=== PATIENT | female | born 1990 | race American Indian/Alaskan Native ===

== ENCOUNTER 2016-12-11 13:17 | Emergency (ER) | payer MEDICAID ==
[2016-10-31 22:57] VITALS: BMI 23.9
[2016-12-11 14:17] LABS: RBC URINE 3 /hpf (0-3); URINE BACTERIA RARE (<OCC); URINE BILIRUBIN NEGATIVE (NEGATIVE); URINE BLOOD NEGATIVE (NEGATIVE); URINE COLOR Yellow (YELLOW); URINE GLUCOSE (UA) NORMAL (Normal); URINE KETONE NEGATIVE (NEGATIVE); URINE LEUKOCYTE ESTERASE 3+ Leu/uL (Negative); URINE PROTEIN NEGATIVE (NEGATIVE); URINE UROBILINOGEN NORMAL mg/dL (0.2-1.0); WBC URINE 35 /hpf (0-5)
[2016-12-11] MEDS ORDERED: Lactated Ringer's 1,000 ML IV SCH (14:45)
[2016-12-11 14:57] LABS: HEMATOCRIT 34.9 % (34.0-47.0); MEAN CORPUSCULAR HEMOGLOBIN 32.9 pg (27.0-31.0); MEAN CORPUSCULAR HGB CONC 36.1 g/dL (33.0-37.0); MEAN PLATELET VOLUME 8.7 fL (7.2-11.7); RED CELL DISTRIBUTION WIDTH 14.3 % (11.5-14.5); WHITE BLOOD COUNT 7.8 K/uL (4.8-10.8)
--- NOTE | 2016-12-11 14:59 | OBHP ---
Datetime: 12/11/2016 14:53 IP Adm Impression: , intrauterine Admit Comment, IP Provider: at 23weeks came as she slipped in the bathroom at 1.30. pt states s he was feeling dizzy.pt vomited x 4. obhx primi pmh denies med pnv all nkda psh de soch den ve closed a/p a 23weeks s/p fall no trauma in the belly npo/ivf cbc/cmp/ptt/pt/ua cont sarah and efm ont close observation Pelvic Type - PN: Adequate Extremities - PN: Normal Abdomen - PN: Normal Back - PN: Normal Breast - PN: Normal Lungs - PN: Normal Heart - PN: Normal Thyroid - PN: Normal Neurologic - PN: Normal HEENT - PN: Normal General - PN: Normal Contraction Comments Provider: [id number] Comments, ACOG Physical Exam: gravid,non tender ext no edema,no calf ten no bruise EGA AdmitDate IP: 23.1 Vital Signs Provider: Reviewed; Within Normal Limits IP Chief Complaint: Trauma/Fall NICHD Variability Prov Fetus A: Moderate 6-25bpm Dilatation, Provider: 0 Effacement, Provider: 0 Station, Provider: -3 Genitourinary Exam: Normal DTRs - PN: Normal
[2016-12-11 15:07] LABS: CHLORIDE 97 mmol/L (98-107); POTASSIUM 3.1 mmol/L (3.6-5.2); SODIUM 133 mmol/L (132-148)
[2016-12-11 15:09] LABS: BILIRUBIN,TOTAL 0.4 mg/dL (0.2-1.3); GFR AFRICAN-AMERICAN > 60
[2016-12-11 15:10] LABS: ALB/GLOB RATIO 1.1 (1.0-2.1); ALKALINE PHOSPHATASE 95 U/L (38-126); ALT/SGPT 48 U/L (9-52); AST/SGOT 47 U/L (14-36); BLOOD UREA NITROGEN 4 mg/dL (7-17); CARBON DIOXIDE 24 mmol/L (22-30); GLUCOSE,RANDOM 75 mg/dL (65-105); TOTAL PROTEIN 6.7 g/dL (6.3-8.3)
[2016-12-11 15:11] LABS: CALCIUM 8.3 mg/dl (8.6-10.4)
--- NOTE | 2016-12-11 16:59 | OBHP ---
Datetime: 12/11/2016 16:54 Admit Comment, IP Provider: pt feels ok. tolerated food blood work all normal except k 3.1 and ast high ua 3+ kdur 20 meq po given plan macrobid 100 mg bid x 7days zofran 4 mg, prn po hyration f/u in clinic on monday FHR - Baseline A Provider: 130 Contraction Comments Provider: none Vital Signs Provider: Reviewed; Within Normal Limits NICHD Variability Prov Fetus A: Moderate 6-25bpm Datetime: 12/11/2016 14:53 EGA AdmitDate IP: 23.1
--- NOTE | 2016-12-11 16:59 | OBDCSUM ---
Datetime: 12/11/2016 16:58 Discharged to, Provider: Home Follow up at, Provider: monday Disch Instr Diet: Regular Follow up in weeks, Provider: clinic Discharge Comment, Provider: macrobid 100 mg bid x 7days zofran 4 mg, prn po hyration f/u in clinic on monday Discharge Diagnosis Prov Other: 23week s/p fall uti vomiting
[2016-12-11] MEDS ORDERED: Potassium Chloride 20 mEq ER Tab PO SCH (17:00)
== END 2016-12-11 16:58 | disposition home or self-care (01) ==
LOC: C.EROB 13:17
DX: O23.42 Unspecified infection of urinary tract in pregnancy, second trimester (principal); Z3A.23 23 weeks gestation of pregnancy
CPT/HCPCS: 80053; 81001; 85027; 85384; 85610; 85730; 99283; J7120

== ENCOUNTER 2017-01-07 14:18 | Inpatient (IN) | payer MEDICAID ==
--- NOTE | 2017-01-07 15:42 | OBHP ---
Datetime: 01/07/2017 15:21 IP Adm Impression: , intrauterine IP Chief Complaint Other: 26 year old at 27 weeks Gestation complains of dysuria, urinary f requency for 1 day. Denies nausea, vomiting. Complains of fever for 1 day. PMH: None PSH: None Allergy: None IP Admit Plan: Observation/Evaluation Admit Comment, IP Provider: Acute UTI. IV Hydration, IV Antibiotics. Pelvic Type - PN: Adequate Extremities - PN: Normal Abdomen - PN: Normal Back - PN: Abnormal Breast - PN: Not Done Lungs - PN: Normal Heart - PN: Normal Thyroid - PN: Not Done Neurologic - PN: Not Done HEENT - PN: Not Done General - PN: Normal FHR - Baseline A Provider: 120 Gestation - Est Wks by US: 27.0 EGA AdmitDate IP: 27.0 Vital Signs Provider: Reviewed Vital Signs Provider Details: Temp 101.4 IP Chief Complaint: Signs/symptoms UTI NICHD Variability Prov Fetus A: Marked >25bpm NICHD Decel Fetus A IP Provider: None Genitourinary Exam: Normal DTRs - PN: Normal
[2017-01-07 15:51] VITALS: BMI 24.7
[2017-01-07 17:03] LABS: BASO % 0.2 % (0.0-2.0); EOS % 0.1 % (0.0-4.0); HEMATOCRIT 40.1 % (34.0-47.0); LYMPH # 1.3 K/uL (1.0-4.3); MEAN CELL VOLUME 91.9 fL (81.0-99.0); MEAN CORPUSCULAR HEMOGLOBIN 31.7 pg (27.0-31.0); MEAN CORPUSCULAR HGB CONC 34.4 g/dL (33.0-37.0); MEAN PLATELET VOLUME 9.9 fL (7.2-11.7); MONO # 1.4 K/uL (0.0-0.8); MONO % 7.5 % (0.0-10.0); NRBC % 0.2 % (0.0-2.0); PLATELET COUNT 314 K/uL (130-400); RED CELL DISTRIBUTION WIDTH 14.6 % (11.5-14.5); WHITE BLOOD COUNT 18.1 K/uL (4.8-10.8)
[2017-01-07 17:09] LABS: CHLORIDE 96 mmol/L (98-107); POTASSIUM 3.3 mmol/L (3.6-5.2); SODIUM 134 mmol/L (132-148)
[2017-01-07 17:11] LABS: ALB/GLOB RATIO 1.1 (1.0-2.1); AST/SGOT 48 U/L (14-36); BILIRUBIN,TOTAL 0.9 mg/dL (0.2-1.3); CARBON DIOXIDE 22 mmol/L (22-30); GFR AFRICAN-AMERICAN > 60; TOTAL PROTEIN 7.6 g/dL (6.3-8.3)
[2017-01-07 17:12] LABS: ALKALINE PHOSPHATASE 145 U/L (38-126); ALT/SGPT 22 U/L (9-52); BLOOD UREA NITROGEN 4 mg/dL (7-17); CALCIUM 8.7 mg/dl (8.6-10.4); GLUCOSE,RANDOM 54 mg/dL (65-105)
[2017-01-07 17:13] LABS: RBC URINE 2 /hpf (0-3); URINE BILIRUBIN NEGATIVE (NEGATIVE); URINE BLOOD NEGATIVE (NEGATIVE); URINE COLOR Yellow (YELLOW); URINE GLUCOSE (UA) NORMAL (Normal); URINE KETONE 2+ mg/dL (NEGATIVE); URINE LEUKOCYTE ESTERASE 3+ Leu/uL (Negative); URINE PROTEIN NEGATIVE (NEGATIVE); URINE UROBILINOGEN NORMAL mg/dL (0.2-1.0); WBC URINE 32 /hpf (0-5)
[2017-01-07 17:31] LABS: NEUTROPHIL 86 % (50-75); TOTAL CELLS COUNTED 100
[2017-01-07] MEDS: Lactated Ringer's 1,000 ML IV SCH (22:45)
[2017-01-08] MEDS: cefTRIAXone IV 1 gm in Dextros 50 ML IVPB SCH ×3 (04:00→16:38)
[2017-01-08 07:44] LABS: BASO # 0.1 K/uL (0.0-0.2); BASO % 0.4 % (0.0-2.0); EOS % 0.2 % (0.0-4.0); HEMATOCRIT 33.6 % (34.0-47.0); MEAN CELL VOLUME 90.9 fL (81.0-99.0); MEAN CORPUSCULAR HEMOGLOBIN 32.6 pg (27.0-31.0); MEAN CORPUSCULAR HGB CONC 35.9 g/dL (33.0-37.0); MEAN PLATELET VOLUME 9.1 fL (7.2-11.7); MONO # 1.6 K/uL (0.0-0.8); MONO % 11.4 % (0.0-10.0); NRBC % 0.1 % (0.0-2.0); RED CELL DISTRIBUTION WIDTH 14.5 % (11.5-14.5)
[2017-01-08] MEDS: Lactated Ringer's 1,000 ML IV SCH ×2 (08:59→17:47)
[2017-01-08] MEDS ORDERED: Prenatal Multivit/Folic Acid/Iron Tab PO SCH (10:00)
--- NOTE | 2017-01-08 10:29 | OBPN ---
Datetime: 01/08/2017 10:21 IP Progress Plan Other: REPLETE POTASSIUM IP Progress Impression Other: STATES VOMITED TWICE LAST NIGHT. BACK PAIN MUCH IMPROVED. IP Progress Plan: Continue present management; Antibiotic therapy FHR - Baseline A Provider: 150 IP Progress Note Comment: WBC DOWN TO 14K,, POTASSIUM 3.0, AFEBRILE. CONTINUE IV ROCEPHIN, REPLETE P OTASSIUM. Vital Signs Provider: Reviewed; Within Normal Limits NICHD Accel Fetus A IP Provider: 10X10 FHR Category Provider Fetus A: Category I NICHD Variability Prov Fetus A: Moderate 6-25bpm NICHD Decel Fetus A IP Provider: None Datetime: 01/07/2017 15:21 Contraction Comments Provider: 0 Gestation - Est Wks by US: 27.0 Vital Signs Provider Details: Temp 101.4 Dilatation, Provider: 0 Effacement, Provider: 0 Station, Provider: high
[2017-01-08 16:25] VITALS: RESP 20
[2017-01-09 02:37] VITALS: BP 104/61; PULSE 95; TEMP 97.8; O2SAT 97
[2017-01-09] MEDS: cefTRIAXone IV 1 gm in Dextros 50 ML IVPB SCH (04:18)
[2017-01-09] MEDS: Lactated Ringer's 1,000 ML IV SCH (04:21)
--- NOTE | 2017-01-09 09:41 | CP.PCM.PN ---
Subjective - Date & Time of Evaluation Date of Evaluation: 01/09/17 Time of Evaluation: 09:38 - Subjective Subjective: PGY-[address] Shipley Pt seen and examined at bedside. Nursing reports no acute events overnight. Pt remained afebrile overnight, with no return of UTI symptoms. She denies frequency, dysuria, difficulty urinating. She denies back pain at this time as well. Pt was anxious to be discharged but was reminded of the importance of going home on the right antibiotic for her infection. Objective - Vital Signs/Intake and Output Vital Signs (last 24 hours): Temp Pulse Resp BP Pulse Ox 97.8 F 95 H 20 104/61 97 01/09/17 02:00 01/09/17 02:00 01/09/17 02:00 01/09/17 02:00 01/09/17 02:00 - Medications Medications: Current Medications Acetaminophen (Tylenol 325mg Tab) 650 mg PO Q6 PRN PRN Reason: Fever >100.4 F Ceftriaxone Sodium (Rocephin Iv 1 Gm Duplex) 50 mls @ 50 mls/30 min IVPB Q12H CRISTOPHER Last Admin: 01/09/17 04:18 Dose: 50 mls/30 min Lactated Ringer's (Lactated Ringer's) 1,000 mls @ 100 mls/hr IV .Q10H CRISTOPHER Last Admin: 01/09/17 04:21 Dose: 100 mls/hr Multivitamins (Hexavitamin) 1 tab PO DAILY CRISTOPHER Last Admin: 01/09/17 09:33 Dose: 1 tab Potassium Chloride (K-Dur 20 Meq Er Tab) 20 meq PO DAILY CRISTOPHER Last Admin: 01/09/17 09:33 Dose: 20 meq - Labs Labs: 01/08/17 07:33 01/08/17 07:33 - Constitutional Appears: Non-toxic, No Acute Distress - Head Exam Head Exam: ATRAUMATIC, NORMOCEPHALIC - Eye Exam Eye Exam: EOMI Pupil Exam: Fixed - ENT Exam ENT Exam: Mucous Membranes Moist - Neck Exam Neck Exam: Full ROM - Respiratory Exam Respiratory Exam: Clear to Ausculation Bilateral, NORMAL BREATHING PATTERN. absent: Rales, Rhonchi, Wheezes - Cardiovascular Exam Cardiovascular Exam: REGULAR RHYTHM, +S1, +S2 - GI/Abdominal Exam GI & Abdominal Exam: Soft, Normal Bowel Sounds. absent: Distended, Guarding, Tenderness (no suprapubic tenderness) Additional comments: Fundal height appropriate for gestational age - Rectal Exam Rectal Exam: Deferred - Extremities Exam Extremities Exam: Normal Inspection. absent: Pedal Edema, Tenderness - Back Exam Back Exam: absent: CVA tenderness (L), CVA tenderness (R) (negative feng's sign ) - Neurological Exam Neurological Exam: Alert, Awake, Oriented x3 - Psychiatric Exam Psychiatric exam: Normal Affect, Normal Mood - Skin Skin Exam: Normal Color, Warm Assessment and Plan - Assessment and Plan (Free Text) Assessment: 26 yo female @ 27 weeks gestational age, who presents to [facility] for UTI symptoms/LBP/with two episodes of emesis. Concern for pyelonephritis. Awaiting urine cx. Plan: UTI r/o pyelonephritis UA (01/07/17): LE 3+, Nitrate negative, WBC 32, Ketones 2+ Awaiting urine culture - if urine culture negative, pt can be discharged Currently on Ceftriaxone 1gm Q12H (started 01/07/17, received 3 doses) f/u CBC Hypokalemia - 3.0 on last labs, repleted w. 40meq PO x 2 LR @ 100cc/hr f/u AM labs and 4pm BMP D/W Dr. Quinten Rivero, PGY-1
[2017-01-09] MEDS ORDERED: Potassium Chloride 20 mEq ER Tab PO SCH ×2 (09:45→10:00)
[2017-01-09] MEDS ORDERED: Multiple Vitamins Tab PO SCH (10:00)
--- NOTE | 2017-01-09 11:44 | CP.PCM.PN ---
Subjective - Date & Time of Evaluation Date of Evaluation: 01/09/17 Time of Evaluation: 12:00 - Subjective Subjective: pt was seen at bed side, feels ctxs, vb, lof,+fm, no dysuriqa,no fever nst 130 mod erik no ctxs u cultre neg Objective - Vital Signs/Intake and Output Vital Signs (last 24 hours): Temp Pulse Resp BP Pulse Ox 97.8 F 95 H 20 104/61 97 01/09/17 02:00 01/09/17 02:00 01/09/17 02:00 01/09/17 02:00 01/09/17 02:00 - Medications Medications: Current Medications Acetaminophen (Tylenol 325mg Tab) 650 mg PO Q6 PRN PRN Reason: Fever >100.4 F Ceftriaxone Sodium (Rocephin Iv 1 Gm Duplex) 50 mls @ 50 mls/30 min IVPB Q12H CRISTOPHER Last Admin: 01/09/17 04:18 Dose: 50 mls/30 min Lactated Ringer's (Lactated Ringer's) 1,000 mls @ 100 mls/hr IV .Q10H CRISTOPHER Last Admin: 01/09/17 04:21 Dose: 100 mls/hr Multivitamins (Hexavitamin) 1 tab PO DAILY CRISTOPHER Last Admin: 01/09/17 09:33 Dose: 1 tab Potassium Chloride (K-Dur 20 Meq Er Tab) 40 meq PO Q4H CRISTOPHER Stop: 01/09/17 13:46 - Labs Labs: 01/08/17 07:33 01/08/17 07:33 - Constitutional Appears: Well Assessment and Plan - Assessment and Plan (Free Text) Assessment: 26 yr with pylonephritis at 27+weeks Plan: plan dc home macrobid 100 mg bid po hyration ptl given f/u in clinic on monday
[2017-01-09 11:52] LABS: BASO % 0.4 % (0.0-2.0); EOS # 0.2 K/uL (0.0-0.7); EOS % 2.1 % (0.0-4.0); HEMATOCRIT 37.7 % (34.0-47.0); LYMPH # 2.1 K/uL (1.0-4.3); LYMPH % 20.4 % (20.0-40.0); MEAN CELL VOLUME 91.1 fL (81.0-99.0); MEAN CORPUSCULAR HEMOGLOBIN 32.2 pg (27.0-31.0); MEAN CORPUSCULAR HGB CONC 35.4 g/dL (33.0-37.0); MONO # 1.1 K/uL (0.0-0.8); MONO % 10.2 % (0.0-10.0); NRBC % 0.2 % (0.0-2.0); WHITE BLOOD COUNT 10.3 K/uL (4.8-10.8)
--- NOTE | 2017-01-09 11:57 | CP.PCM.DIS ---
Provider - Provider Date of Admission: 01/07/17 15:52 Attending physician: Mj Greer MD Primary care physician: Mj Greer MD Time Spent in preparation of Discharge (in minutes): 40 Diagnosis - Discharge Diagnosis (1) UTI (urinary tract infection) during Status: Acute Hospital Course - Lab Results Lab Results: Micro Results 01/07/17 17:30 Urine,Catheterized Urine Culture - Final No Growth (<1,000 CFU/ML) Most Recent Lab Values WBC 14.0 K/uL (4.8-10.8) H 01/08/17 07:33 RBC 3.69 Mil/uL (3.80-5.20) L 01/08/17 07:33 Hgb 12.1 g/dL (11.0-16.0) 01/08/17 07:33 Hct 33.6 % (34.0-47.0) L 01/08/17 07:33 MCV 90.9 fL (81.0-99.0) 01/08/17 07:33 MCH 32.6 pg (27.0-31.0) H 01/08/17 07:33 MCHC 35.9 g/dL (33.0-37.0) 01/08/17 07:33 RDW 14.5 % (11.5-14.5) 01/08/17 07:33 Plt Count 287 K/uL (130-400) 01/08/17 07:33 MPV 9.1 fL (7.2-11.7) 01/08/17 07:33 Neut % (Auto) 74.0 % (50.0-75.0) 01/08/17 07:33 Lymph % (Auto) 14.0 % (20.0-40.0) L 01/08/17 07:33 [place] % (Auto) 11.4 % (0.0-10.0) H 01/08/17 07:33 Eos % (Auto) 0.2 % (0.0-4.0) 01/08/17 07:33 Baso % (Auto) 0.4 % (0.0-2.0) 01/08/17 07:33 Neut # 10.4 K/uL (1.8-7.0) H 01/08/17 07:33 Lymph # 2.0 K/uL (1.0-4.3) 01/08/17 07:33 [place] # 1.6 K/uL (0.0-0.8) H 01/08/17 07:33 Eos # 0.0 K/uL (0.0-0.7) 01/08/17 07:33 Baso # 0.1 K/uL (0.0-0.2) 01/08/17 07:33 Neutrophils % (Manual) 86 % (50-75) H 01/07/17 16:53 Band Neutrophils % 1 % (0-2) 01/07/17 16:53 Lymphocytes % (Manual) 8 % (20-40) L 01/07/17 16:53 Monocytes % (Manual) 5 % (0-10) 01/07/17 16:53 Platelet Estimate Normal (NORMAL) 01/07/17 16:53 Polychromasia Slight 01/07/17 16:53 Anisocytosis (manual) Slight 01/07/17 16:53 Sodium 134 mmol/L (132-148) 01/07/17 16:53 Potassium 3.0 mmol/L (3.6-5.2) L 01/08/17 07:33 Chloride 96 mmol/L (98-107) L 01/07/17 16:53 Carbon Dioxide 22 mmol/L (22-30) 01/07/17 16:53 Anion Gap 19 (10-20) 01/07/17 16:53 BUN 4 mg/dL (7-17) L 01/07/17 16:53 Creatinine 0.5 MG/DL (0.7-1.2) L 01/07/17 16:53 Est GFR ( Amer) > 60 01/07/17 16:53 Est GFR (Non-Af Amer) > 60 01/07/17 16:53 Random Glucose 54 mg/dL (65-105) L 01/07/17 16:53 Calcium 8.7 mg/dl (8.6-10.4) 01/07/17 16:53 Total Bilirubin 0.9 mg/dL (0.2-1.3) 01/07/17 16:53 AST 48 U/L (14-36) H 01/07/17 16:53 ALT 22 U/L (9-52) 01/07/17 16:53 Alkaline Phosphatase 145 U/L (38-126) H D 01/07/17 16:53 Total Protein 7.6 g/dL (6.3-8.3) 01/07/17 16:53 Albumin 3.9 g/dL (3.5-5.0) 01/07/17 16:53 Globulin 3.6 gm/dL (2.2-3.9) 01/07/17 16:53 Albumin/Globulin Ratio 1.1 (1.0-2.1) 01/07/17 16:53 Urine Color Yellow (YELLOW) 01/07/17 16:53 Urine Clarity Hazy (Clear) 01/07/17 16:53 Urine pH 5.0 (5.0-8.0) 01/07/17 16:53 Ur Specific [place] 1.012 (1.003-1.030) 01/07/17 16:53 Urine Protein Negative mg/dL (NEGATIVE) 01/07/17 16:53 Urine Glucose (UA) Normal mg/dL (Normal) 01/07/17 16:53 Urine Ketones 2+ mg/dL (NEGATIVE) H 01/07/17 16:53 Urine Blood Negative (NEGATIVE) 01/07/17 16:53 Urine Nitrate Negative (NEGATIVE) 01/07/17 16:53 Urine Bilirubin Negative (NEGATIVE) 01/07/17 16:53 Urine Urobilinogen Normal mg/dL (0.2-1.0) 01/07/17 16:53 Ur Leukocyte Esterase 3+ Raquel/uL (Negative) H 01/07/17 16:53 Urine WBC (Auto) 32 /hpf (0-5) H 01/07/17 16:53 Urine RBC (Auto) 2 /hpf (0-3) 01/07/17 16:53 Ur Squamous Epith Cells 1 /hpf (0-5) 01/07/17 16:53 Urine Opiates Screen Negative (NEGATIVE) 01/07/17 16:53 Urine Methadone Screen Negative (NEGATIVE) 01/07/17 16:53 Ur Barbiturates Screen Negative (NEGATIVE) 01/07/17 16:53 Ur Phencyclidine Scrn Negative (NEGATIVE) 01/07/17 16:53 Ur Amphetamines Screen Negative (NEGATIVE) 01/07/17 16:53 U Benzodiazepines Scrn Negative (NEGATIVE) 01/07/17 16:53 U Oth Cocaine Metabols Negative (NEGATIVE) 01/07/17 16:53 U Cannabinoids Screen Negative (NEGATIVE) 01/07/17 16:53 RPR Nonreactive (NONREACTIVE) 01/07/17 16:53 Hep Bs Antigen Negative (NEGATIVE) 01/07/17 16:53 HIV 1&2 Antibody Screen Negative (NEGATIVE) 01/07/17 16:53 Rubella IgG Antibody Positive (POSITIVE) 01/07/17 16:53 Blood Type O POSITIVE 01/07/17 16:53 Antibody Screen Negative 01/07/17 16:53 - Hospital Course Hospital Course: This is a 26 year old female who presented to the hospital for 1 day of dysuria, and urinary frequency. The patient is at 27 week sgestation of her current . The patient was managed symptomatically while on the OB floor. She received 4 total doses of Ceftriaxone 500mg IV. Her UA on admission revealed leukocyte esterase 3+, Nitrates negative, WBC 32, Ketones 2+ . The urine culture returned negative. During her stay, the patient was also found to be hypokalemic. The patient was given PO K-Dur for potassium repletion. The patient had a resolution of her symptoms. This morning, the patient was seen and examined at the bedside with the attending physician. She denied all complaints at that time. The discharge plan and follow ups were extensively discussed with the patient who verbalized complete understanding and agreement with the plan and follow up plan. The patient's medical condition was also discussed and complete understanding was again verbalized. At this time, after discussion of all issues, the patient was deemed medically fit for discharge. The patient was DC home with a prescription for Macrobid 100mg PO BID x 7 days. - Date & Time of H&P Date of H&P: 01/07/17 Time of H&P: 11:57 Discharge Exam - Additional Findings Additional findings: - Constitutional Appears: Non-toxic, No Acute Distress - Head Exam Head Exam: ATRAUMATIC, NORMOCEPHALIC - Eye Exam Eye Exam: EOMI Pupil Exam: Fixed - ENT Exam ENT Exam: Mucous Membranes Moist - Neck Exam Neck Exam: Full ROM - Respiratory Exam Respiratory Exam: Clear to Ausculation Bilateral, NORMAL BREATHING PATTERN. absent: Rales, Rhonchi, Wheezes - Cardiovascular Exam Cardiovascular Exam: REGULAR RHYTHM, +S1, +S2 - GI/Abdominal Exam GI & Abdominal Exam: Soft, Normal Bowel Sounds. absent: Distended, Guarding, Tenderness (no suprapubic tenderness) Additional comments: Fundal height appropriate for gestational age - Rectal Exam Rectal Exam: Deferred - Extremities Exam Extremities Exam: Normal Inspection. absent: Pedal Edema, Tenderness - Back Exam Back Exam: absent: CVA tenderness (L), CVA tenderness (R) (negative feng's sign ) - Neurological Exam Neurological Exam: Alert, Awake, Oriented x3 - Psychiatric Exam Psychiatric exam: Normal Affect, Normal Mood - Skin Skin Exam: Normal Color, Warm Discharge Plan - Follow Up Plan Condition: GOOD Disposition: HOME/ ROUTINE Patient education suggested?: Yes Instructions: Nitrofurantoin Combination (By mouth), Urinary Tract Infection in Women (DC), (DC) Additional Instructions: 1.) Please follow up with PMD withing 1 week of discharge 2.) Take macrobid 100mg PO BID x 7 days, prescription provided. 3.) If symptoms return please return to the ED for evaluation. Referrals: Mj Greer MD [Emergency Provider] -
[2017-01-09 12:04] LABS: CHLORIDE 101 mmol/L (98-107); POTASSIUM 3.4 mmol/L (3.6-5.2); SODIUM 134 mmol/L (132-148)
[2017-01-09 12:05] LABS: ALKALINE PHOSPHATASE 123 U/L (38-126); ALT/SGPT 20 U/L (9-52); AST/SGOT 22 U/L (14-36); BILIRUBIN,TOTAL 0.5 mg/dL (0.2-1.3); CARBON DIOXIDE 22 mmol/L (22-30); GFR AFRICAN-AMERICAN > 60; GLUCOSE,RANDOM 86 mg/dL (65-105); TOTAL PROTEIN 6.6 g/dL (6.3-8.3)
[2017-01-09 12:06] LABS: BLOOD UREA NITROGEN < 2 mg/dL (7-17); CALCIUM 8.1 mg/dl (8.6-10.4)
== END 2017-01-09 14:10 | disposition home or self-care (01) | DRG 886 ==
LOC: C.EROB 14:18 → C.4D 15:52 → C.4M 18:50
PROVIDERS: ADMIT Obstetrics & Gynecology; ATTEND Obstetrics & Gynecology
DX: O23.32 Infections of other parts of urinary tract in pregnancy, second trimester (principal); O99.282 Endocrine, nutritional and metabolic diseases complicating pregnancy, second trimester; E87.6 Hypokalemia; Z3A.27 27 weeks gestation of pregnancy

== ENCOUNTER 2017-02-18 05:56 | Inpatient (IN) | payer MEDICAID ==
[2017-01-07 15:06] VITALS: BMI 23.9
[2017-02-18] MEDS ORDERED: Penicillin G 5 Million Unit Vial IVPB ONE ×2 (06:33→07:26)
--- NOTE | 2017-02-18 06:37 | OBHP ---
Datetime: 02/18/2017 06:32 IP Adm Impression: , intrauterine IP Admit Plan: Admit to unit Admit Comment, IP Provider: chief complaint-vaginal bleeding HPI 26 y/o at 33weeks presents because of vaginal bleeding which started at 5.30 pm when she went to bathroom. course -pnc at [facility]; episode of pyelonephritis pmh denies med pnv psh denies soch denies tobacco,alcohol or infjtw7n drug use OBGYN HX ; TOPX1; SABX5 Exam see exam section A/P Patientr at 33 wga with third trimester bleeidng a-dmit -steroids -discussed with patient possibility of emergent delivery -coags -drug screen -monitor closely Extremities - PN: Normal Abdomen - PN: Normal Back - PN: Normal Lungs - PN: Normal Heart - PN: Normal Neurologic - PN: Normal General - PN: Normal FHR - Baseline A Provider: 140 Contraction Comments Provider: occ Comments, ACOG Physical Exam: Speculum exam-porfirio blood seen in vagina cervix /-3 IP Hx Assessment: The History has been Reviewed and is Current EGA AdmitDate IP: 33.0 Vital Signs Provider: Reviewed Vital Signs Provider Details: bp 120/93 IP Chief Complaint: Vaginal bleeding NICHD Variability Prov Fetus A: Moderate 6-25bpm Dilatation, Provider: 1 Effacement, Provider: 50 Station, Provider: -3 Genitourinary Exam: Abnormal DTRs - PN: Normal Datetime: 01/08/2017 10:21 NICHD Accel Fetus A IP Provider: 10X10 FHR Category Provider Fetus A: Category I NICHD Decel Fetus A IP Provider: None Datetime: 01/07/2017 15:21 IP Admit Plan Other: IV Antibiotics.
[2017-02-18] MEDS ORDERED: Lactated Ringer's 1,000 ML IV SCH (06:45)
[2017-02-18] MEDS ORDERED: Betamethasone Soluspan 30 mg/5mL Inj Susp IM SCH (07:00)
[2017-02-18 07:55] LABS: FDP INTERPRETATION POSITIVE (NEGATIVE); FDP QUANTITY >10<40 ug/mL (<10)
[2017-02-18 08:02] LABS: BASO # 0.1 K/uL (0.0-0.2); EOS # 0.1 K/uL (0.0-0.7)
[2017-02-18 08:05] LABS: URINE BILIRUBIN NEGATIVE (NEGATIVE); URINE BLOOD 2+ (NEGATIVE); URINE COLOR Straw (YELLOW); URINE GLUCOSE (UA) NORMAL (Normal); URINE KETONE NEGATIVE (NEGATIVE); URINE LEUKOCYTE ESTERASE 2+ Leu/uL (Negative); URINE PROTEIN NEGATIVE (NEGATIVE); URINE UROBILINOGEN NORMAL mg/dL (0.2-1.0); WBC URINE 15 /hpf (0-5)
[2017-02-18 08:10] LABS: CHLORIDE 101 mmol/L (98-107)
[2017-02-18 08:11] LABS: POTASSIUM 3.3 mmol/L (3.6-5.2); RBC URINE 10 /hpf (0-3); SODIUM 135 mmol/L (132-148)
[2017-02-18 08:12] LABS: BILIRUBIN,TOTAL 0.5 mg/dL (0.2-1.3); GFR AFRICAN-AMERICAN > 60
[2017-02-18 08:13] LABS: ALKALINE PHOSPHATASE 204 U/L (38-126); ALT/SGPT 18 U/L (9-52); AST/SGOT 29 U/L (14-36); BLOOD UREA NITROGEN 4 mg/dL (7-17); CARBON DIOXIDE 22 mmol/L (22-30); GLUCOSE,RANDOM 74 mg/dL (65-105); TOTAL PROTEIN 6.7 g/dL (6.3-8.3)
[2017-02-18 08:14] LABS: CALCIUM 8.6 mg/dl (8.6-10.4); URIC ACID 4.4 mg/dL (2.2-7.5)
[2017-02-18 08:23] LABS: BASO % 0.9 % (0.0-2.0); EOS % 0.7 % (0.0-4.0); HEMATOCRIT 39.7 % (34.0-47.0); LYMPH # 2.7 K/uL (1.0-4.3); LYMPH % 27.8 % (20.0-40.0); MEAN CELL VOLUME 92.4 fL (81.0-99.0); MEAN CORPUSCULAR HEMOGLOBIN 32.8 pg (27.0-31.0); MEAN CORPUSCULAR HGB CONC 35.5 g/dL (33.0-37.0); MONO # 1.1 K/uL (0.0-0.8); MONO % 11.2 % (0.0-10.0); NRBC % 0.4 % (0.0-2.0); RED CELL DISTRIBUTION WIDTH 15.2 % (11.5-14.5); WHITE BLOOD COUNT 9.5 K/uL (4.8-10.8)
[2017-02-18 09:00] LABS: INR 0.9
--- NOTE | 2017-02-18 09:56 | US ---
PROCEDURE: OB Pelvic Ultrasound HISTORY: third trimester bleeding COMPARISON: None available. FINDINGS: UTERUS: Gestational sac: Single live intrauterine fetus in vertex presentation. Heart rate: 132 bpm. age (Ultrasound estimated): 29 weeks and 2 days Mary Ann-gestational hemorrhage: None. Date of delivery (Ultrasound estimated) : 05/04/2017 BPD 7.4 cm corresponding to 29 weeks and 6 days of gestational age. HC 27.1 cm corresponding to 29 weeks and 4 days of gestational age. AC 23.3 cm corresponding to 27 weeks and 5 days of gestational age. FL 5.7 cm corresponding to 29 weeks and 6 days of gestational age. Placenta is anterior and inhomogeneous in echotexture. Estimated weight is 1282 grams. There is significant decrease in the amount of amniotic fluid with the amniotic fluid index measuring 4.0 cm. Four chamber cardiac view, stomach, kidneys, urinary bladder and cord insertion as visualized. CERVIX: Long and closed. No cervical abnormality seen. FREE FLUID: None. BIOPHYSICAL PROFILE: breathin body movement: 2 Tone: 0 Amniotic fluid: 0 IMPRESSION: 1. Single live intrauterine fetus in vertex presentation. Placenta is anterior and inhomogeneous. Cervix is closed. 2. Abnormal biophysical profile score of 4/8.
--- NOTE | 2017-02-18 10:23 | OBPN ---
Datetime: 02/18/2017 10:09 IP Progress Impression Other: 33 weeks; PPROM; third trimestre bleeding IP Progress Plan: Transfer Contraction Comments Provider: occasional Gestation - Est Wks by US: 33.0 Presentation-Admit: Vertex IP Progress Note Comment: Patient has been evaluated since 0700 hours: at that time, vaginal bleedin g had abated significantly. Digital exam performed at that time was not for no heavy bleeding; small amount of dark red blood per vaginal vault. Cervical exam - as above. Palpation of uterus - non tender in all quadrants. Fundal height 30 cm Bedside ultrasound performed: vertex, EFW 1282 grams, Anterior placenta, BPS 4/8 (0 for fluid and tone) SUPRIYA 4.0cm Assessment: 26 yo P0070, 33 weeks, by LMP and 14+ weeks ultrasound, PPROM, confirmed oligohydramni os (SUPRIYA 4.0 cm). Patient has been receiving [place] weekly IM - last dose 02/17/17; and also has been o n baby ASA 81 mg p.o. QD. Patient received celestone 12 mg IM x 1 and penicillin 5 million units IVPB x 1. Transfer has been discussed with patient and FOB as it pertains to NICU care in light of probab le delivery. All questions and concerns were answered and adressed. Category 1 tracing. Paola ent is clinically stable. Plan 1) [place] [facility] [place] physician, Dr. Lassiter Vital Signs Provider: Reviewed FHR Category Provider Fetus A: Category I Dilatation, Provider: 1 Effacement, Provider: 40 NICHD Decel Fetus A IP Provider: None Datetime: 02/18/2017 06:32 FHR - Baseline A Provider: 140 Vital Signs Provider Details: bp 120/93 NICHD Variability Prov Fetus A: Moderate 6-25bpm Station, Provider: -3
== END 2017-02-18 10:13 | disposition short-term general hospital (02) | DRG 886 ==
LOC: C.EROB 05:56 → C.4D 06:39
PROVIDERS: ADMIT Obstetrics & Gynecology; ATTEND Obstetrics & Gynecology
DX: O42.913 Preterm premature rupture of membranes, unspecified as to length of time between rupture and onset of labor, third trimester (principal); Z3A.33 33 weeks gestation of pregnancy

== ENCOUNTER 2018-07-10 09:57 | Emergency (ER) | payer SELFPAY ==
[2018-07-10 09:57] VITALS: BMI 23.9
[2018-07-10 10:12] VITALS: BP 116/78; PULSE 84; RESP 18; TEMP 97.7; O2SAT 100
--- NOTE | 2018-07-10 10:34 | C.PDOC ---
History Of Present Illness 28 year old female presents to the ED for evaluation of left rib mid axillary line discomfort for the last few days. Patient reports the pain is digital and positionally reproducible. She also notes repetitive movement in her job. Denies injuries, falls, shortness of breath, chest pain, palpitations, and any other associated symptoms. Time Seen by Provider: 07/10/18 10:27 Chief Complaint (Nursing): Rib Injury History Per: Patient History/Exam Limitations: no limitations Onset/Duration Of Symptoms: Days Current Symptoms Are (Timing): Still Present Past Medical History Reviewed: Historical Data, Nursing Documentation, Vital Signs Vital Signs: Last Vital Signs Temp 97.7 F 07/10/18 10:07 Pulse 84 07/10/18 10:07 Resp 18 07/10/18 10:07 BP 116/78 07/10/18 10:07 Pulse Ox 100 07/10/18 10:07 - Medical History PMH: HTN - [facility] Procedures ASPIRAT CURET-POST DELIV (03/30/15) OTHER INSTILLATION (12/06/13) Family History: States: Unknown Family Hx - Social History Hx Tobacco Use: No Hx Alcohol Use: No Hx Substance Use: No - Immunization History Hx Tetanus Toxoid Vaccination: No Hx Influenza Vaccination: No Hx Pneumococcal Vaccination: No Review Of Systems Except As Marked, All Systems Reviewed And Found Negative. Constitutional: Negative for: Other ((-) injuries. (-) falls.) Cardiovascular: Negative for: Chest Pain, Palpitations Respiratory: Negative for: Shortness of Breath Musculoskeletal: Positive for: Other (left rib mid axillary line discomfort.) Physical Exam - Physical Exam Appears: Well, Non-toxic, No Acute Distress Skin: Normal Color, Warm, Dry Head: Atraumatic, Normacephalic Eye(s): bilateral: Normal Inspection Neck: Normal ROM, Supple Chest: Symmetrical, No Deformity, Tenderness (to the left rib mid axillary line, intercostal T5 T6.) Cardiovascular: Rhythm Regular, No Murmur Respiratory: Normal Breath Sounds, No Rales, No Rhonchi, No Wheezing Neurological/Psych: Oriented x3, Normal Speech, Normal Motor, Normal Sensation, Normal Reflexes ED Course And Treatment O2 Sat by Pulse Oximetry: 100 (RA) Pulse Ox Interpretation: Normal (.) Medical Decision Making Medical Decision Making: cosotchondritis L lateral rib area Plan: -Motrin Progress/Update: ice pack was applied. Patient stable for discharge home. Disposition Doctor Will See Patient In The: Office Counseled Patient/Family Regarding: Studies Performed, Diagnosis - Disposition Referrals: [facility] [Outside] [employer] [facility] [Outside] [facility] [Outside] [facility] [Outside] Disposition: HOME/ ROUTINE Disposition Time: 10:34 Condition: GOOD Additional Instructions: ice packs 1/2 hour per hour, nothing hot motrin/advil/ibuprofen (may be liquid form) 400-600 mg every 6 hours as needed normal work duty Instructions: Costochondritis Forms: [employer] ([place]) - Clinical Impression Clinical Impression: Costochondral pain - Scribe Statement The provider has reviewed the documentation as recorded by the Scribe (Joaquina Caceres) Provider Attestation: All medical record entries made by the Scribe were at my direction and personally dictated by me. I have reviewed the chart and agree that the record accurately reflects my personal performance of the history, physical exam, medical decision making, and the department course for this patient. I have also personally directed, reviewed, and agree with the discharge instructions and disposition.
== END 2018-07-10 10:47 | disposition home or self-care (01) ==
LOC: C.ER 09:57
DX: M94.0 Chondrocostal junction syndrome [Tietze] (principal)

== ENCOUNTER 2018-07-22 16:45 | Emergency (ER) | payer MEDICAID ==
[2018-07-22 16:59] VITALS: BMI 23.3
[2018-07-22 17:08] VITALS: TEMP 98.5
--- NOTE | 2018-07-22 17:49 | C.PDOC ---
History Of Present Illness 28 year old female presents to the ED for an evaluation of left forearm pain developed a few hours ago. States pain was sustained from pulling a heavy box at [employer] today where she works. Pt describes pain as localized and worse with movement. Pt denies weakness, deformity, sensory or vascular deficient to Left arm, denies skin changes. Ambulate to Ed for evaluation, not in any apparent distress. numbness. Time Seen by Provider: 07/22/18 17:06 Chief Complaint (Nursing): Upper Extremity Problem/Injury History Per: Patient Past Medical History Reviewed: Historical Data, Nursing Documentation, Vital Signs Vital Signs: Last Vital Signs Temp 98.5 F 07/22/18 17:00 Pulse 94 H 07/22/18 17:00 Resp 17 07/22/18 17:00 BP 116/82 07/22/18 17:00 Pulse Ox 98 07/22/18 17:00 - Medical History PMH: HTN - [facility] Procedures ASPIRAT CURET-POST DELIV (03/30/15) OTHER INSTILLATION (12/06/13) Family History: States: Unknown Family Hx - Social History Hx Tobacco Use: No Hx Alcohol Use: No Hx Substance Use: No - Immunization History Hx Tetanus Toxoid Vaccination: No Hx Influenza Vaccination: No Hx Pneumococcal Vaccination: No Review Of Systems Except As Marked, All Systems Reviewed And Found Negative. Constitutional: Negative for: Fever, Chills ENT: Negative for: Throat Pain Cardiovascular: Negative for: Chest Pain Gastrointestinal: Negative for: Nausea, Vomiting, Abdominal Pain Musculoskeletal: Positive for: Other (Left forearm pain) Skin: Negative for: Rash, Lesions, Bruising Neurological: Negative for: Weakness, Numbness Physical Exam - Physical Exam Appears: Well, Non-toxic, No Acute Distress Skin: Warm, Dry Extremity: Normal ROM (LUE without difficulty or pain), Tenderness (diffused tenderness over left forearm ), Capillary Refill (less than 2 sec ), No Deformity, No Swelling, No Other ((-) ecchymosis (-) edema to left forearm) Extremity: Bilateral: Atraumatic, Normal Color And Temperature, Normal ROM Pulses: Left Radial: Normal Neurological/Psych: Oriented x3, Normal Speech, Normal Motor, Normal Sensation, Normal Reflexes Gait: Steady ED Course And Treatment O2 Sat by Pulse Oximetry: 98 (RA) Pulse Ox Interpretation: Normal - Other Rad Left forearm X-Ray: Interpreted by Me, Viewed By Me Interpretation: (-)acute fx or dislocation Progress Note: On re-eval, pt is afebrile, hemodynamicaly stable. Non-toxic. LUE: diffuse tenderness over left forearm, no deformity, no ecchymoses. FAROM, no neurovascular deficist to Left UE. Imaging review (-) acute fx or dislocation. Mason wrapplied to left elbow nad forearm. Pt advised. ref. to F/u with PMD in 2-3 days for re-eval. return if any new changes. Disposition Counseled Patient/Family Regarding: Studies Performed, Diagnosis, Need For Followup, Rx Given - Disposition Referrals: [facility] [Outside] Disposition: HOME/ ROUTINE Disposition Time: 17:40 Condition: STABLE Additional Instructions: Light duty to Left arm for 2-3 days Take Ibuprofen for pain Follow up with PMD in 2-3 days for re-evaluation. return to Ed if any worsening or new changes. Prescriptions: Ibuprofen [Motrin] 1 tab PO BID PRN #30 tab PRN Reason: Pain Instructions: Contusion (DC) Forms: [employer] (Nepali), Work Excuse - Clinical Impression Clinical Impression: Forearm strain - PA / RECREATIONAL AIDE / Resident Statement MD/DO has reviewed & agrees with the documentation as recorded. - Scribe Statement The provider has reviewed the documentation as recorded by the Scribari Jensen All medical record entries made by the Scribe were at my direction and personally dictated by me. I have reviewed the chart and agree that the record accurately reflects my personal performance of the history, physical exam, medical decision making, and the department course for this patient. I have also personally directed, reviewed, and agree with the discharge instructions and disposition.
[2018-07-22 18:01] VITALS: BP 121/72; PULSE 72; RESP 18; O2SAT 97
--- NOTE | 2018-07-23 10:11 | RAD ---
Date of service: 07/22/2018 PROCEDURE: Radiographs of the Left Forearm HISTORY: Injury COMPARISON: None available. TECHNIQUE: Frontal and lateral views obtained. FINDINGS: BONES: No fracture or destructive lesion. JOINT SPACES: Unremarkable. OTHER FINDINGS: None. IMPRESSION: Unremarkable radiographs of the left forearm.
== END 2018-07-22 18:01 | disposition home or self-care (01) ==
LOC: C.ER 16:45
DX: S56.912A Strain of unspecified muscles, fascia and tendons at forearm level, left arm, initial encounter (principal); X50.9XXA Other and unspecified overexertion or strenuous movements or postures, initial encounter; Y92.89 Other specified places as the place of occurrence of the external cause; Y99.0 Civilian activity done for income or pay

== ENCOUNTER 2018-08-16 16:03 | Emergency (ER) | payer MEDICAID, OTHER ==
[2018-08-16 16:06] VITALS: BMI 23.3
[2018-08-16] MEDS ORDERED: Sodium Chloride 0.9% 1,000 ML IV ONE (16:39)
[2018-08-16] MEDS ORDERED: Acetaminophen 160 mg/5 ml UD PO ONE (16:39)
--- NOTE | 2018-08-16 16:40 | C.PDOC ---
History Of Present Illness 28 y/o 7-week female with PMH of HTN presents to the ED c/o nausea and vomiting x 8 hours. States she has had 6 episodes of non-bloody emesis since waking this morning. Associated mild frontal headache and generalized achey abdominal pain only when vomiting. Decreased PO intake. Pt has confirmed twin IUP from TV US report on 08/02. Compliant with vitamins but has not yet followed up with OBGYN. LMP 05/14/18. No recent travel or antibiotics. Denies fevers, chills, diarrhea, chest pain, SOB, dizziness, vision changes, neck pain, dysuria, frequency, hematuria, vaginal discharge, vaginal bleeding, or any other associated symptoms. Time Seen by Provider: 08/16/18 16:15 Chief Complaint (Nursing): Abdominal Pain History Per: Patient History/Exam Limitations: no limitations Onset/Duration Of Symptoms: Hrs Current Symptoms Are (Timing): Still Present Severity: Moderate Location Of Pain/Discomfort: Diffuse Radiation Of Pain To:: None Quality Of Discomfort: Aching Associated Symptoms: Nausea, Vomiting Exacerbating Factors: Other (Vomiting) Alleviating Factors: Rest Last Bowel Movement: Today Recent travel outside of the [place]: No Abnormal Vaginal Bleeding: No Last Menstral Period: 05/14/2108 Past Medical History Reviewed: Historical Data, Nursing Documentation, Vital Signs Vital Signs: Last Vital Signs Temp 98 F 08/16/18 16:10 Pulse 99 H 08/16/18 16:10 Resp 17 08/16/18 16:10 BP 110/74 08/16/18 16:10 Pulse Ox 98 08/16/18 16:10 - Medical History PMH: HTN - [facility] Procedures ASPIRAT CURET-POST DELIV (03/30/15) OTHER INSTILLATION (12/06/13) Family History: States: Unknown Family Hx - Social History Hx Tobacco Use: No Hx Alcohol Use: No Hx Substance Use: No - Immunization History Hx Tetanus Toxoid Vaccination: No Hx Influenza Vaccination: No Hx Pneumococcal Vaccination: No Review Of Systems Except As Marked, All Systems Reviewed And Found Negative. Constitutional: Negative for: Fever, Chills Eyes: Negative for: Vision Change Cardiovascular: Negative for: Chest Pain, Palpitations, Light Headedness Respiratory: Negative for: Cough, Shortness of Breath Gastrointestinal: Positive for: Nausea, Vomiting, Abdominal Pain Genitourinary: Negative for: Dysuria, Frequency Musculoskeletal: Negative for: Neck Pain, Back Pain Neurological: Positive for: Headache. Negative for: Weakness, Numbness, Dizziness Physical Exam - Physical Exam Appears: Well, Non-toxic, No Acute Distress Skin: Normal Color, Warm, Dry Head: Atraumatic, Normacephalic Eye(s): bilateral: Normal Inspection, PERRL, EOMI Ear(s): Bilateral: Normal Nose: Normal Oral Mucosa: Moist Neck: Normal, Normal ROM, Supple Lymphatic: Normal Exam Chest: No Tenderness Cardiovascular: Rhythm Regular Respiratory: Normal Breath Sounds Gastrointestinal/Abdominal: Normal Exam, Bowel Sounds (normoactive), Soft, No Tenderness Back: Normal Inspection, No CVA Tenderness, No Paraspinal Tenderness Extremity: Normal ROM, No Tenderness, Capillary Refill (<2s) Extremity: Bilateral: Atraumatic, No Pedal Edema, Normal Color And Temperature, Normal ROM Pulses: Left Radial: Normal, Right Radial: Normal Neurological/Psych: Oriented x3, Normal Speech, Normal Cognition, Normal Motor, Normal Sensation Gait: Steady ED Course And Treatment - Laboratory Results Result Diagrams: 08/16/18 16:38 08/16/18 16:38 Urine POC: Positive O2 Sat by Pulse Oximetry: 98 Medical Decision Making Medical Decision Making: Initial Plan: * CBC, CMP * Hcg Quant * UA, culture * Transvaginal US * Tylenol * Reglan * IVF 17:20 Reports resolution of headache and nausea after medications. 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 Patient will sign out AMA, pending UA, TV US. Risks of leaving AMA discussed with patient, to include, , disability, and worsening of symptoms. Patient verbalized understanding of risks and understands that she can return at any time if she wishes to be re-evaluated or if new/worsening symptoms develop. Patient given the opportunity to ask questions. Advised to followup with PMD and OBGYN, continue taking vitamins, and increase fluids. 17:47 Patient signed AMA form, witnessed by nursing. Patient A&Ox3, ambulating with steady gait, with stable vital signs at this time. Disposition - Disposition Referrals: [facility] [Outside] [facility] [Outside] Rosaura Lugo MD [Staff Provider] - Disposition: AGAINST MEDICAL ADVICE Disposition Time: 17:45 Condition: IMPROVED Additional Instructions: Followup with PMD within 2 days Followup with OB within 2 days Tylenol for headache Continue vitamins Return to ER if you wish to be re-evaluated or new/worsening symptoms develop Instructions: Leaving Against Medical Advice Forms: [facility] (Argentine) - Clinical Impression Clinical Impression: Vomiting affecting
[2018-08-16 16:46] LABS: BASO # 0.1 K/uL (0.0-0.2); BASO % 0.5 % (0.0-2.0); EOS % 0.2 % (0.0-4.0); HEMOGLOBIN 14.6 g/dL (11.0-16.0); LYMPH # 1.2 K/uL (1.0-4.3); LYMPH % 9.4 % (20.0-40.0); MEAN CORPUSCULAR HEMOGLOBIN 31.7 pg (27.0-31.0); MEAN CORPUSCULAR HGB CONC 35.9 g/dL (33.0-37.0); MEAN PLATELET VOLUME 8.2 fL (7.2-11.7); MONO # 0.6 K/uL (0.0-0.8); NEUT # 10.9 K/uL (1.8-7.0); NEUT % 84.9 % (50.0-75.0); RBC 4.59 Mil/uL (3.80-5.20); RED CELL DISTRIBUTION WIDTH 13.4 % (11.5-14.5); WHITE BLOOD COUNT 12.8 K/uL (4.8-10.8)
[2018-08-16 16:56] LABS: MEAN CELL VOLUME 88.3 fL (81.0-99.0); PLATELET COUNT 366 K/uL (130-400)
[2018-08-16 17:01] LABS: ALB/GLOB RATIO 1.3 (1.0-2.1); ALBUMIN 4.6 g/dL (3.5-5.0); ALT/SGPT 17 U/L (9-52); AST/SGOT 20 U/L (14-36); BLOOD UREA NITROGEN 11 mg/dL (7-17); GFR NON-AFRICAN AMERICAN > 60
[2018-08-16] MEDS ORDERED: Acetaminophen 650mg/20.3ml solution UD ONE (17:15)
[2018-08-16 17:43] VITALS: BP 105/68; PULSE 90; RESP 16; TEMP 98.3
[2018-08-16 17:53] LABS: SQUAMOUS EPITHIAL 4 /hpf (0-5); URINE BACTERIA OCC (<OCC); URINE BILIRUBIN NEGATIVE (NEGATIVE); URINE BLOOD NEGATIVE (NEGATIVE); URINE CLARITY Clear (Clear); URINE COLOR Yellow (YELLOW); URINE GLUCOSE (UA) NORMAL (Normal); URINE LEUKOCYTE ESTERASE 2+ Leu/uL (Negative); URINE PROTEIN NEGATIVE (NEGATIVE)
[2018-08-16 18:21] LABS: BANDS 1 % (0-2); LYMPHOCYTE 10 % (20-40); MONOCYTE 5 % (0-10); NEUTROPHIL 84 % (50-75); PLATELET ESTIMATE NORMAL (NORMAL); TOTAL CELLS COUNTED 100
[2018-08-16 23:23] VITALS: O2SAT 98
== END 2018-08-16 17:47 | disposition left against medical advice (07) ==
LOC: C.ER 16:03
DX: O21.9 Vomiting of pregnancy, unspecified (principal); Z3A.01 Less than 8 weeks gestation of pregnancy
CPT/HCPCS: 80053; 81001; 84702; 85025; 87086; 96361; 96374; 99285; J2765; J7030

== ENCOUNTER 2018-09-09 14:36 | Emergency (ER) | payer MEDICAID ==
[2018-09-09 14:36] VITALS: BMI 23.3
[2018-09-09 14:43] VITALS: RESP 18; O2SAT 100
[2018-09-09] MEDS ORDERED: Sodium Chloride 0.9% 1,000 ML IV ONE (15:35)
[2018-09-09 15:49] LABS: BASO # 0.1 K/uL (0.0-0.2); BASO % 0.7 % (0.0-2.0); EOS % 0.5 % (0.0-4.0); HEMOGLOBIN 13.9 g/dL (11.0-16.0); LYMPH # 3.2 K/uL (1.0-4.3); LYMPH % 41.7 % (20.0-40.0); MEAN CORPUSCULAR HEMOGLOBIN 32.2 pg (27.0-31.0); MEAN CORPUSCULAR HGB CONC 35.6 g/dL (33.0-37.0); MEAN PLATELET VOLUME 8.3 fL (7.2-11.7); MONO # 0.6 K/uL (0.0-0.8); MONO % 8.1 % (0.0-10.0); NEUT # 3.7 K/uL (1.8-7.0); RBC 4.31 Mil/uL (3.80-5.20); RED CELL DISTRIBUTION WIDTH 13.7 % (11.5-14.5); WHITE BLOOD COUNT 7.6 K/uL (4.8-10.8)
[2018-09-09 15:51] LABS: MEAN CELL VOLUME 90.5 fL (81.0-99.0)
[2018-09-09 15:52] LABS: SQUAMOUS EPITHIAL 2 /hpf (0-5); URINE BACTERIA OCC (<OCC); URINE BILIRUBIN NEGATIVE (NEGATIVE); URINE BLOOD 1+ (NEGATIVE); URINE CLARITY Clear (Clear); URINE COLOR Yellow (YELLOW); URINE GLUCOSE (UA) NORMAL (Normal); URINE LEUKOCYTE ESTERASE 1+ Leu/uL (Negative); URINE PROTEIN NEGATIVE (NEGATIVE); URINE UROBILINOGEN NORMAL mg/dL (0.2-1.0)
[2018-09-09 16:06] LABS: ALB/GLOB RATIO 1.4 (1.0-2.1); ALBUMIN 4.5 g/dL (3.5-5.0); ALT/SGPT 16 U/L (9-52); AST/SGOT 27 U/L (14-36); BLOOD UREA NITROGEN 8 mg/dL (7-17); GFR NON-AFRICAN AMERICAN > 60
[2018-09-09 17:51] VITALS: BP 106/71; PULSE 72; TEMP 98.2
--- NOTE | 2018-09-09 18:15 | C.PDOC ---
History Of Present Illness 28 years old female is 3 months and presents to ED for complaints of suprapubic abdominal pain that began today. Patient describes pain as constant and non-radiating. Denies vaginal bleeding, vaginal discharge, dysuria, nausea, vomiting, diarrhea, or fever. Time Seen by Provider: 09/09/18 15:13 Chief Complaint (Nursing): Abdominal Pain History Per: Patient History/Exam Limitations: no limitations Onset/Duration Of Symptoms: Hrs, Persistent Current Symptoms Are (Timing): Still Present Location Of Pain/Discomfort: Suprapubic Radiation Of Pain To:: None Associated Symptoms: denies: Fever, Chills, Nausea, Vomiting, Diarrhea Exacerbating Factors: None Alleviating Factors: None Last Bowel Movement: Today Recent travel outside of the [place]: No Abnormal Vaginal Bleeding: No : 8 Para: 1 Past Medical History Reviewed: Historical Data, Nursing Documentation, Vital Signs Vital Signs: Last Vital Signs Temp 98.2 F 09/09/18 17:51 Pulse 72 09/09/18 17:51 Resp 18 09/09/18 17:51 BP 106/71 09/09/18 17:51 Pulse Ox 100 09/09/18 17:51 - Medical History PMH: HTN - [facility] Procedures ASPIRAT CURET-POST DELIV (03/30/15) OTHER INSTILLATION (12/06/13) Family History: States: Unknown Family Hx - Social History Hx Tobacco Use: No Hx Alcohol Use: No Hx Substance Use: No - Immunization History Hx Tetanus Toxoid Vaccination: No Hx Influenza Vaccination: No Hx Pneumococcal Vaccination: No Review Of Systems Constitutional: Negative for: Fever, Chills Gastrointestinal: Positive for: Abdominal Pain (Suprapubic ). Negative for: Nausea, Vomiting, Diarrhea Genitourinary: Negative for: Dysuria Skin: Negative for: Rash Neurological: Negative for: Weakness, Numbness Physical Exam - Physical Exam Appears: Non-toxic, No Acute Distress Skin: Normal Color, Warm, Dry, No Rash Head: Atraumatic, Normacephalic Eye(s): bilateral: Normal Inspection, PERRL, EOMI Oral Mucosa: Moist Neck: Normal ROM, Supple Chest: Symmetrical, No Tenderness Cardiovascular: Rhythm Regular, No Murmur Respiratory: Normal Breath Sounds, No Rales, No Rhonchi, No Wheezing Gastrointestinal/Abdominal: Bowel Sounds (Active ), Soft, Tenderness (Mild Suprapubic ), No Other (McBurney's) Extremity: Normal ROM Extremity: Bilateral: Atraumatic, Normal Color And Temperature, Normal ROM Pulses: Left Radial: Normal, Right Radial: Normal Neurological/Psych: Oriented x3, Normal Speech Gait: Steady ED Course And Treatment - Laboratory Results Result Diagrams: 09/09/18 15:43 09/09/18 15:43 O2 Sat by Pulse Oximetry: 100 (RA) Pulse Ox Interpretation: Normal Progress Note: Adminsitered IV Fluids. Ordered blood bank, blood work, urinalysis and Preg 1st trimester/OB ultrasound. Disposition Counseled Patient/Family Regarding: Studies Performed, Diagnosis, Need For Followup - Disposition Referrals: [facility] [Outside] Disposition: AGAINST MEDICAL ADVICE Disposition Time: 18:45 Condition: STABLE Instructions: Leaving Against Medical Advice, Acute Pelvic Pain (DC) Forms: [employer] (Danish) Print Language: SWAZI - Clinical Impression Clinical Impression: Pelvic pain affecting , Left against medical advice - Scribe Statement The provider has reviewed the documentation as recorded by the Scribari Stock All medical record entries made by the Scribe were at my direction and personally dictated by me. I have reviewed the chart and agree that the record accurately reflects my personal performance of the history, physical exam, medical decision making, and the department course for this patient. I have also personally directed, reviewed, and agree with the discharge instructions and di sposition.
--- NOTE | 2018-09-09 18:16 | C.PDOC ---
Time Seen by Provider: 09/09/18 15:13 Chief Complaint (Nursing): Abdominal Pain Past Medical History Vital Signs: Last Vital Signs Temp 98.2 F 09/09/18 17:51 Pulse 72 09/09/18 17:51 Resp 18 09/09/18 17:51 BP 106/71 09/09/18 17:51 Pulse Ox 100 09/09/18 17:51 - Medical History PMH: HTN - [facility] Procedures ASPIRAT CURET-POST DELIV (03/30/15) OTHER INSTILLATION (12/06/13) Family History: States: Unknown Family Hx - Social History Hx Tobacco Use: No Hx Alcohol Use: No Hx Substance Use: No - Immunization History Hx Tetanus Toxoid Vaccination: No Hx Influenza Vaccination: No Hx Pneumococcal Vaccination: No ED Course And Treatment - Laboratory Results Result Diagrams: 09/09/18 15:43 09/09/18 15:43 O2 Sat by Pulse Oximetry: 100 Disposition - Disposition
--- NOTE | 2018-09-10 11:12 | US ---
Date of service: 09/09/2018 Technique: Both transabdominal and endovaginal imaging was performed. Findings: The uterus measures approximately 11.2 x 7.3 x 7.4 cm. Anteverted. Cervix length measures approximately 3.4 cm. Trace fluid in the cervix. This is a twin gestation. Fetus A: 0.2 cm yolk sac. The gestational sac measures 3.0 cm and is compatible with a gestational age of 8 weeks 0 days. The crown-rump length measures 1.8 cm and is compatible with a gestational age of 8 weeks 2 days. heart motion is not detected at this time. Fetus B: 0.3 cm yolk sac. The gestational sac measures 3.1 cm and is compatible with a gestational age of 8 weeks 0 days. The crown-rump length measures 1.8 cm and is compatible with a gestational age of 8 weeks 1 days. heart motion is not detected at this time. The right ovary measures 2.8 x 1.9 x 2.3 cm. 1.5 cm probable corpus luteum. The left ovary measures 2.9 x 2.2 x 3.0 cm. Blood flow is demonstrated to both ovaries. Impression: Twin gestation. Fetus A: 0.2 cm yolk sac. The gestational sac measures 3.0 cm and is compatible with a gestational age of 8 weeks 0 days. The crown-rump length measures 1.8 cm and is compatible with a gestational age of 8 weeks 2 days. heart motion is not detected at this time. Fetus B: 0.3 cm yolk sac. The gestational sac measures 3.1 cm and is compatible with a gestational age of 8 weeks 0 days. The crown-rump length measures 1.8 cm and is compatible with a gestational age of 8 weeks 1 days. heart motion is not detected at this time. Trace fluid in the cervix. Advise an anomaly screen at 16-18 weeks gestational age. Preliminary impression was provided by [employer].
== END 2018-09-09 18:58 | disposition left against medical advice (07) ==
LOC: C.ER 14:36
DX: O26.891 Other specified pregnancy related conditions, first trimester (principal); Z3A.08 8 weeks gestation of pregnancy; R10.2 Pelvic and perineal pain
CPT/HCPCS: 76805; 76817; 80053; 81001; 84702; 85025; 86850; 86900; 96360; 99285; J7030

== ENCOUNTER 2018-09-11 20:04 | Emergency (ER) | payer MEDICAID ==
[2018-09-11 20:04] VITALS: BMI 23.3
[2018-09-11 20:32] VITALS: O2SAT 98
[2018-09-11] MEDS ORDERED: Sodium Chloride 0.9% 1,000 ML IV ONE (21:11)
--- NOTE | 2018-09-11 21:11 | C.PDOC ---
History Of Present Illness 28 year old female, , 3 month presents to the ED c/o vaginal bleeding for the past 2 days. Patient had a US done on 09/09/18 which at that time showed twin gestation approximately 8 weeks however both fetus A and B did not have heart motion. Patient denies fever, chills, nausea, vomit, diarrhea, back pain, dysuria, hematuria. Time Seen by Provider: 09/11/18 21:11 Chief Complaint (Nursing): Female Genitourinary History Per: Patient History/Exam Limitations: no limitations Onset/Duration Of Symptoms: Days (2) Current Symptoms Are (Timing): Still Present Quality Of Discomfort: "Pain" Associated Symptoms: denies: Nausea, Vomiting, Diarrhea, Urinary Symptoms Recent travel outside of the [place]: No Additional History Per: Patient Abnormal Vaginal Bleeding: Yes Last Menstral Period: June 2018 : 8 Para: 1 Past Medical History Reviewed: Historical Data, Nursing Documentation, Vital Signs Vital Signs: Last Vital Signs Temp 98 F 09/11/18 20:28 Pulse 86 09/11/18 20:28 Resp 20 09/11/18 20:28 BP 108/62 09/11/18 20:28 Pulse Ox 98 09/11/18 20:28 - Medical History PMH: HTN Surgical History: No Surg Hx - [facility] Procedures ASPIRAT CURET-POST DELIV (03/30/15) OTHER INSTILLATION (12/06/13) Family History: States: Unknown Family Hx - Social History Hx Tobacco Use: No Hx Alcohol Use: No Hx Substance Use: No - Immunization History Hx Tetanus Toxoid Vaccination: No Hx Influenza Vaccination: No Hx Pneumococcal Vaccination: No Review Of Systems Constitutional: Negative for: Fever, Chills Cardiovascular: Negative for: Chest Pain Respiratory: Negative for: Shortness of Breath Gastrointestinal: Negative for: Nausea, Vomiting, Abdominal Pain Genitourinary: Positive for: Vaginal Bleeding. Negative for: Dysuria, Hematuria Skin: Negative for: Rash Physical Exam - Physical Exam Appears: Non-toxic, No Acute Distress Skin: Warm, Dry Head: Normacephalic Eye(s): bilateral: Normal Inspection Oral Mucosa: Moist Neck: Supple Chest: Symmetrical Cardiovascular: Rhythm Regular Respiratory: No Rales, No Rhonchi, No Wheezing Gastrointestinal/Abdominal: Soft, No Tenderness, No Guarding, No Rebound Back: No CVA Tenderness Extremity: Bilateral: Atraumatic, Normal Color And Temperature, Normal ROM Neurological/Psych: Oriented x3, Normal Speech, Normal Cognition Gait: Steady ED Course And Treatment - Laboratory Results Result Diagrams: 09/11/18 22:31 09/11/18 22:31 O2 Sat by Pulse Oximetry: 98 (ON RA) Pulse Ox Interpretation: Normal - CT Scan/US pelvic US Other Rad Studies (CT/US): Read By Radiologist, Radiology Report Reviewed CT/US Interpretation: Procedure. OB Transvaginal Ultrasound. History. Vaginal bleed. 3 months . Comparison. None available. Findings. Uterus. Twin intrauterine gestation. . Fetus A: CRL measures 1.80 cm, equivalent to 8 weeks 2 days gestation. Gestational sac diameter measures 3.24 cm, equivalent to 8 weeks 2 days gestation. Yolk sac is seen and measures 0.19 cm. Heart rate not seen. . Fetus B: CRL measures 1.10 cm, equivalent to 7 weeks 6 days gestation. Gestational sac diameter measures 3.46 cm, equivalent to 8 weeks 4 days gestation. Yolk sac is seen and measures 0.21 cm. Heart rate not seen. . Uterus measures 9.41 x 6.53 x 7.39 cm. Anteverted. No mass. . Cervix. Measures 2.88 cm. Long and closed. No cervical abnormality seen. Right Ovary. Measures 2.74 x 1.85 x 2.22 cm. Normal flow. Corpus luteal cyst measures 1.58 x 1.28 x 1.40 cm. Left Ovary. Measures 2.48 x 1.87 x 2.27 cm. Normal flow. Small cyst measures 1.29 x 0.88 x 0.86 cm. Free Fluid. None. Other Findings. None. Impression. Twin intrauterine gestation. Gestation sac, pole and yolk sac seen. No heart beat identified in the either fetus compatible with demise. Right corpus luteal cyst. Left ovary small cyst. . Electronically signed on Sep 11, 2018 10:53:33 PM EST by: Ed Dubois M.D., XANDER Certified By ABR & CBCCT. Fellowship Trained MRI and CT Specialist Progress Note: Plan: - Labs. - UA. - Iv fluids. - Pelvic US Medical Decision Making Medical Decision Making: Upon provider reevaluation patient is feeling better, is medically stable, and requires no further treatment in the ED at this time. Patient will be discharged home . Counseling was provided and all questions were answered regarding diagnosis and need for follow up with your national sales manager. There is agreement to discharge plan. Return if symptoms persist or worsen. Disposition Counseled Patient/Family Regarding: Studies Performed, Diagnosis, Need For Followup - Disposition Disposition: HOME/ ROUTINE Disposition Time: 21:11 Condition: FAIR Additional Instructions: Please follow up with your national sales manager tomorrow Instructions: Threatened Miscarriage (DC) Forms: [employer] (Nepali) - Clinical Impression Clinical Impression: demise - Scribe Statement The provider has reviewed the documentation as recorded by the Scribe Emeterio Hutton All medical record entries made by the Scribe were at my direction and personally dictated by me. I have reviewed the chart and agree that the record accurately reflects my personal performance of the history, physical exam, medical decision making, and the department course for this patient. I have also personally directed, reviewed, and agree with the discharge instructions and disposition.
[2018-09-11] MEDS ORDERED: Sodium Chloride 0.9% 1,000 ML ONE (21:24)
[2018-09-11 21:37] LABS: HCG,QUALITATIVE URINE POSITIVE (NEGATIVE)
[2018-09-11 21:45] LABS: SQUAMOUS EPITHIAL < 1 /hpf (0-5); URINE BACTERIA OCC (<OCC); URINE BILIRUBIN NEGATIVE (NEGATIVE); URINE BLOOD 3+ (NEGATIVE); URINE CLARITY Clear (Clear); URINE COLOR Straw (YELLOW); URINE GLUCOSE (UA) NORMAL (Normal); URINE LEUKOCYTE ESTERASE TRACE Leu/uL (Negative); URINE PROTEIN NEGATIVE (NEGATIVE); URINE UROBILINOGEN NORMAL mg/dL (0.2-1.0)
[2018-09-11 22:34] LABS: BASO # 0.1 K/uL (0.0-0.2); BASO % 0.8 % (0.0-2.0); EOS % 0.5 % (0.0-4.0); HEMOGLOBIN 13.8 g/dL (11.0-16.0); LYMPH # 3.2 K/uL (1.0-4.3); LYMPH % 46.7 % (20.0-40.0); MEAN CELL VOLUME 90.7 fL (81.0-99.0); MEAN CORPUSCULAR HEMOGLOBIN 32.4 pg (27.0-31.0); MEAN CORPUSCULAR HGB CONC 35.7 g/dL (33.0-37.0); MEAN PLATELET VOLUME 8.4 fL (7.2-11.7); MONO # 0.5 K/uL (0.0-0.8); MONO % 6.9 % (0.0-10.0); NEUT # 3.1 K/uL (1.8-7.0); NEUT % 45.1 % (50.0-75.0); RBC 4.26 Mil/uL (3.80-5.20); RED CELL DISTRIBUTION WIDTH 13.8 % (11.5-14.5); WHITE BLOOD COUNT 6.9 K/uL (4.8-10.8)
[2018-09-11 22:53] LABS: ALB/GLOB RATIO 1.3 (1.0-2.1); ALBUMIN 4.6 g/dL (3.5-5.0); ALT/SGPT 16 U/L (9-52); AST/SGOT 19 U/L (14-36); BLOOD UREA NITROGEN 9 mg/dL (7-17); GFR NON-AFRICAN AMERICAN > 60
[2018-09-11 23:38] VITALS: BP 116/79; PULSE 90; RESP 16; TEMP 98.5
--- NOTE | 2018-09-12 11:40 | US ---
Date of service: 09/11/2018 Technique: Both transabdominal and endovaginal imaging was performed. Findings: The uterus measures approximately 9.4 x 6.5 x 7.4 cm. Anteverted. Cervix length measures approximately 2.9 cm. This is a twin gestation. Fetus A: 2 mm yolk sac. The gestational sac measures 3.24 cm and is compatible with a gestational age of 8 weeks 2 days. The crown-rump length measures 1.8 cm and is compatible with a gestational age of 8 weeks 2 days. heart motion is not detected at this time. Fetus B: 2 mm yolk sac. The gestational sac measures 3.5 cm and is compatible with a gestational age of 8 weeks 4 days. The crown-rump length measures 1.1 cm and is compatible with a gestational age of 7 weeks 6 days. heart motion is not detected at this time. The right ovary measures 2.7 x 1.9 x 2.2 cm. Blood flow is demonstrated. 1.6 x 1.3 x 1.4 cm probable corpus luteal cyst. The left ovary measures 2.5 x 1.9 x 2.3 cm. Blood flow is demonstrated. Impression: Twin gestation. Fetus A: 2 mm yolk sac. The gestational sac measures 3.24 cm and is compatible with a gestational age of 8 weeks 2 days. The crown-rump length measures 1.8 cm and is compatible with a gestational age of 8 weeks 2 days. heart motion is not detected on this examination. Fetus B: 2 mm yolk sac. The gestational sac measures 3.5 cm and is compatible with a gestational age of 8 weeks 4 days. The crown-rump length measures 1.1 cm and is compatible with a gestational age of 7 weeks 6 days. heart motion is not detected on this examination. Recommend clinical correlation including documentation manager consultation, and repeat study as indicated. Preliminary impression was provided by [employer].
== END 2018-09-11 23:38 | disposition home or self-care (01) ==
LOC: C.ER 20:04
DX: O36.4XX0 Maternal care for intrauterine death, not applicable or unspecified (principal); Z3A.08 8 weeks gestation of pregnancy
CPT/HCPCS: 76805; 76817; 80053; 81001; 84702; 84703; 85025; 86850; 86900; 96360; 99285; J7030

== ENCOUNTER 2018-09-12 13:55 | Day surgery (SDC) | payer MEDICAID ==
[2018-09-12 13:55] VITALS: BMI 23.3
[2018-09-12] MEDS ORDERED: Lactated Ringer's 1,000 ML IV ONE ×3 (17:24→19:47)
--- NOTE | 2018-09-12 18:18 | CP.PCM.HP ---
History of Present Illness - History of Present Illness History of Present Illness: Marco Henderson DO, PGY-1 Assembly Machine Tender Admission History and Physical for Dr. Herrera HPI: Consult for 28yo female, , FDLMP 06/13/18, LEONEL 02/21/19. Patient has had 4 D&Cs and has had an emergent due to heart arrhythmia. Menarche was at 12yo, last Pap smear was in August 2018. Patient denies history of fibroids/cysts. History was obtained from patient and her partner (Father of ). Patient has been experiencing constant vaginal bleeding with thin clots for the past 6 days. Pt's partner called pt's primary ASIAN STUDIES PROFESSOR who advised them to go to ED due to danger of retaining the products of conception, status post spontaneous . Patient denies abdominal pain, nausea, vomiting, but she admits to H/A. Patient was seen at [facility]. PMH: HTN PSH: emergent Meds: vitamins Allergies: denies SocialHx: denies EtOH, tobacco, and illicit drug use, she lives with her partner and is no longer employed as of a few months ago Sexual hx: Patient has only one sexual partner in last year and has not history of STIs US: Fetuses are 8 weeks and 2 days gestation Present on Admission - Present on Admission Any Indicators Present on Admission: No History of DVT/PE: No History of Uncontrolled Diabetes: No Urinary Catheter: No Decubitus Ulcer Present: No Review of Systems - Constitutional Constitutional: As Per HPI. absent: Chills, Fever - Cardiovascular Cardiovascular: absent: Chest Pain, Dyspnea - Respiratory Respiratory: absent: Cough, Dyspnea - Gastrointestinal Gastrointestinal: Abdominal Pain. absent: Nausea, Vomiting - Reproductive: Female Reproductive:Female: As Per HPI, Pelvic Pain - Menstruation Menstruation: As Per HPI - Neurological Neurological: Headaches. absent: Numbness Past Patient History - Infectious Disease Hx of Infectious Diseases: None - Tetanus Immunizations Tetanus Immunization: Unknown - Past Social History Smoking Status: Never Smoked - CARDIAC Hx Hypertension: Yes - PSYCHIATRIC Hx Substance Use: No - SURGICAL HISTORY Hx Surgeries: Yes Hx Section: Yes (X1) Hx Dilation and Curettage: Yes (X6) - ANESTHESIA Hx Anesthesia: Yes Hx Anesthesia Reactions: No Hx Malignant Hyperthermia: No Meds Allergies/Adverse Reactions: Allergies Allergy/AdvReac Type Severity Reaction Status Date / Time shellfish derived Allergy SWELLING Verified 09/11/18 20:32 Seafood Allergy SWELLING Uncoded 09/09/18 14:43 Physical Exam - Constitutional Appears: Non-toxic, No Acute Distress - Head Exam Head Exam: ATRAUMATIC, NORMOCEPHALIC - Eye Exam Eye Exam: EOMI, Normal appearance, PERRL - ENT Exam ENT Exam: Mucous Membranes Moist - Respiratory Exam Respiratory Exam: Clear to Auscultation Bilateral, NORMAL BREATHING PATTERN. absent: Rales, Rhonchi, Wheezes - Cardiovascular Exam Cardiovascular Exam: REGULAR RHYTHM, RRR. absent: Gallop, Rubs, Systolic Murmur - GI/Abdominal Exam GI & Abdominal Exam: Soft. absent: Tenderness - Exam External exam: NORMAL EXTERNAL EXAM Speculum exam: NORMAL SPECULUM EXAM, Vaginal Bleeding (small amount of vaginal blood) Bimanual exam: NORMAL BIMANUAL EXAM. absent: Cervical Motion Tendernes - Extremities Exam Extremities exam: Positive for: normal inspection. Negative for: pedal edema - Back Exam Back exam: NORMAL INSPECTION - Neurological Exam Neurological exam: Alert, Oriented x3 - Psychiatric Exam Psychiatric exam: Normal Affect, Normal Mood - Skin Skin Exam: Dry, Intact, Warm Results - Vital Signs Recent Vital Signs: Last Vital Signs Temp 97.4 F L 09/12/18 14:07 Pulse 84 09/12/18 14:07 Resp 20 09/12/18 14:07 BP 102/72 09/12/18 14:07 Pulse Ox 99 09/12/18 14:07 Assessment & Plan - Assessment and Plan (Free Text) Assessment: 28 yo F , FDLMP 06/13/18, LEONEL 02/21/19 presented to ED with SAB. Plan: -Retained products of conception due to spontaneous -> plan on dilation and evacuation tonight with discharge afterwards Case and plan reviewed and discussed with Dr. Javier Henderson, DO IM Resident PGY-1
[2018-09-12] MEDS ORDERED: Midazolam 2 MG/2 ML VIAL ONE (18:42)
[2018-09-12] MEDS ORDERED: Propofol 10 mg/ml Inj (20 ML) ONE (18:42)
[2018-09-12] MEDS ORDERED: Silver Nitrate Topical - Stick ONE (19:20)
[2018-09-12] MEDS ORDERED: Oxytocin 10 Units/ml Inj ONE (19:21)
[2018-09-12] MEDS ORDERED: HYDROmorphone 0.5 mg/0.5 ml ISec IVP PRN (19:25)
--- NOTE | 2018-09-12 19:42 | PCM.OP ---
Operative Report - Operative Report Date of Surgery/Procedure: 09/12/18 Time of Surgery/Procedure: 19:40 Surgeon: Cindy Herrera DO Project Manager Senior: None Anesthesia/Sedation: General with Etube Pre-Operative Diagnosis: Demise Post-Operative Diagnosis: Same Indication for Surgery: Demise Operative Findings: External genitalia, vagina and cervix WNL Uterus about 8-10 weeks size and regular Adnexa bilaterally WNL Procedure/Operation Description: Exam Under Anesthesia Dilatation and Evacuation Estimated Blood Loss: 50 mls Blood Replaced: None Sponge/Instrument Count: Correct Drains: None Complications: None Specimen: Products of Conception Discharge & Condition: Stable and Satisfactory
[2018-09-12 20:05] VITALS: O2SAT 100
--- NOTE | 2018-09-12 20:18 | C.PDOC ---
History Of Present Illness 28 y/o female, , comes in stating shes been having miscarriages. Patient was seen here last night and was told that she has a twin demise as seen on US. Patient states she continues to bleed vaginally. Patient has history of 4 spontaneous abortions. States she called private OBGYN doctor this morning who recommended her to return to ED for possible D&C. Denies fever or vomiting. Chief Complaint (Nursing): Female Genitourinary History Per: Patient History/Exam Limitations: no limitations Onset/Duration Of Symptoms: Days Current Symptoms Are (Timing): Still Present Past Medical History Reviewed: Historical Data, Nursing Documentation, Vital Signs Vital Signs: Last Vital Signs Temp 97.6 F 09/12/18 19:28 Pulse 72 09/12/18 20:00 Resp 12 09/12/18 20:00 BP 112/71 09/12/18 20:00 Pulse Ox 100 09/12/18 20:00 - Medical History PMH: HTN - [facility] Procedures ASPIRAT CURET-POST DELIV (03/30/15) OTHER INSTILLATION (12/06/13) Family History: States: No Known Family Hx - Social History Hx Tobacco Use: No Hx Alcohol Use: No Hx Substance Use: No - Immunization History Hx Tetanus Toxoid Vaccination: No Hx Influenza Vaccination: No Hx Pneumococcal Vaccination: No Review Of Systems Except As Marked, All Systems Reviewed And Found Negative. Constitutional: Negative for: Fever Cardiovascular: Negative for: Chest Pain Respiratory: Negative for: Shortness of Breath Gastrointestinal: Negative for: Vomiting, Abdominal Pain Genitourinary: Positive for: Vaginal Bleeding. Negative for: Dysuria Physical Exam - Physical Exam Appears: Non-toxic, No Acute Distress Skin: Warm, Dry Head: Atraumatic, Normacephalic Eye(s): bilateral: Normal Inspection Oral Mucosa: Moist Neck: Supple Chest: Symmetrical Cardiovascular: Rhythm Regular, No Murmur Respiratory: Normal Breath Sounds, No Rales, No Rhonchi, No Wheezing Gastrointestinal/Abdominal: Soft, No Tenderness Extremity: Bilateral: Atraumatic, Normal Color And Temperature, Normal ROM Neurological/Psych: Oriented x3, Normal Speech ED Course And Treatment O2 Sat by Pulse Oximetry: 100 (RA) Pulse Ox Interpretation: Normal Progress - Re-Evaluation Re-evaluation Note: Spoke to Dr. Herrera, OBGYN. Patient admitted to same day surgery for D&C. Medical Decision Making Medical Decision Making: Plan: --Dilaudid 0.5 mg IV --Methergine 0.2 mg IV --Zofran 4 mg IV -- PO --Lactated Ringers 1L Disposition - Disposition Disposition: HOSPITALIZED Disposition Time: 17:10 Condition: STABLE - Clinical Impression Clinical Impression: Missed with demise before 20 completed weeks of gestation - Scribe Statement The provider has reviewed the documentation as recorded by the Dustin Baltazar Provider Attestation: All medical record entries made by the Dustin were at my direction and personally dictated by me. I have reviewed the chart and agree that the record accurately reflects my personal performance of the history, physical exam, medical decision making, and the department course for this patient. I have also personally directed, reviewed, and agree with the discharge instructions and disposition.
[2018-09-12 20:56] VITALS: BP 106/70; PULSE 78; RESP 14; TEMP 97.4
[2018-09-13] MEDS ORDERED: Prenatal Multivit/Folic Acid/Iron Tab PO SCH (10:00)
== END 2018-09-12 21:00 | disposition home or self-care (01) ==
LOC: C.ER 13:55 → C.SDS 17:24
PROVIDERS: ATTEND Obstetrics & Gynecology
DX: O02.1 Missed abortion (principal)
CPT/HCPCS: 59820; 86850; 86900; J1885; J2250; J2405; J2590; J2704; J3010; J7120

== ENCOUNTER 2018-10-12 20:17 | Emergency (ER) | payer MEDICAID ==
[2018-10-12 20:17] VITALS: BMI 23.3
[2018-10-12 20:30] VITALS: O2SAT 98
--- NOTE | 2018-10-12 20:49 | C.PDOC ---
History Of Present Illness 28 year old female presents to the ED c/o headache associated with nausea, vomit that started yesterday. Patient reports she had a miscarriage on September 2018. Patient states she took Motrin with minimal relief. Patient denies fever, chills, visual changes, CP, SOB, vaginal bleeding, vaginal discharge, rash. Time Seen by Provider: 10/12/18 20:48 Chief Complaint (Nursing): Headache History Per: Patient History/Exam Limitations: no limitations Onset/Duration Of Symptoms: Days (1) Current Symptoms Are (Timing): Still Present Quality: "Pain" Associated Symptoms: Nausea, Vomiting Recent travel outside of the [place]: No Additional History Per: Patient Past Medical History Reviewed: Historical Data, Nursing Documentation, Vital Signs Vital Signs: Last Vital Signs Temp 97.8 F 10/12/18 20:28 Pulse 80 10/12/18 20:28 Resp 16 10/12/18 20:28 BP 113/78 10/12/18 20:28 Pulse Ox 98 10/12/18 20:28 - Medical History PMH: HTN Surgical History: No Surg Hx - [facility] Procedures ASPIRAT CURET-POST DELIV (03/30/15) OTHER INSTILLATION (12/06/13) Family History: States: Unknown Family Hx - Social History Hx Tobacco Use: No Hx Alcohol Use: No Hx Substance Use: No - Immunization History Hx Tetanus Toxoid Vaccination: No Hx Influenza Vaccination: No Hx Pneumococcal Vaccination: No Review Of Systems Constitutional: Negative for: Fever, Chills Eyes: Negative for: Vision Change Cardiovascular: Negative for: Chest Pain Respiratory: Negative for: Shortness of Breath Gastrointestinal: Positive for: Nausea, Vomiting. Negative for: Abdominal Pain, Diarrhea Musculoskeletal: Negative for: Neck Pain Skin: Negative for: Rash Neurological: Positive for: Headache. Negative for: Weakness, Numbness, Dizziness Physical Exam - Physical Exam Appears: Non-toxic, No Acute Distress Skin: Warm, Dry Head: Normacephalic Eye(s): bilateral: Normal Inspection, PERRL, EOMI Neck: No Midline Cervical Tenderness, Supple Chest: Symmetrical Cardiovascular: Rhythm Regular Respiratory: No Rales, No Rhonchi, No Wheezing Gastrointestinal/Abdominal: Soft, No Tenderness, No Guarding, No Rebound Back: No CVA Tenderness Extremity: Bilateral: Atraumatic, Normal Color And Temperature, Normal ROM Neurological/Psych: Oriented x3, Normal Speech, Normal Cognition Gait: Steady ED Course And Treatment - Laboratory Results Result Diagrams: 10/12/18 21:12 10/12/18 21:12 O2 Sat by Pulse Oximetry: 98 (ON RA) Pulse Ox Interpretation: Normal - CT Scan/US CT head Other Rad Studies (CT/US): Read By Radiologist, Radiology Report Reviewed CT/US Interpretation: EXAM: CT Head without Intravenous Contrast. CLINICAL HISTORY: Headache. TECHNIQUE: Axial computed tomography images of the head/brain without intravenous contrast. 0.00 mGy-cm. COMPARISON: None provided. FINDINGS: BRAIN. No acute intraparenchymal hemorrhage. No mass lesion. No CT evidence for acute territorial infarct. No midline shift or extra- axial collections. VENTRICLES: No hydrocephalus. ORBITS: The orbits are unremarkable. SINUSES AND MASTOIDS: Incidental discovery is made of a 5.6 mm mucous retention cyst or polyp in the medial left sphenoid sinus. The remaining paranasal sinuses and mastoid air cells are clear. BONES: No fracture. SOFT TISSUES: Unremarkable. IMPRESSION: 1. No acute intracranial abnormality. 2. Incidental note is made of a 5.6 mm mucous retention cyst or polyp in the medial left sphenoid sinus. . Electronically signed on Oct 12, 2018 10:40:40 PM EST by: Ed Dubois M.D., XANDER Certified By ABR & CBCCT. Fellowship Trained MRI and CT Specialist Progress Note: Plan: - CT head. - Labs. - Toradol 30 mg IVP. - Zofrann 4 mg IVP Reevaluation Time: 22:57 Reassessment Condition: Improved Medical Decision Making Medical Decision Making: Upon provider reevaluation patient is feeling better, is medically stable, and requires no further treatment in the ED at this time. Patient will be discharged home with Rx for zofran. Counseling was provided and all questions were answered regarding diagnosis and need for follow up with the referred clinic. There is agreement to discharge plan. Return if symptoms persist or worsen. Disposition Counseled Patient/Family Regarding: Studies Performed, Diagnosis, Need For Followup, Rx Given - Disposition Referrals: [facility] [Outside] [facility] [Outside] Disposition: HOME/ ROUTINE Disposition Time: 20:49 Condition: FAIR Additional Instructions: Please return if symptoms recur Prescriptions: Ondansetron ODT [Zofran ODT] 1 odt PO BID PRN #6 odt PRN Reason: Nausea/Vomiting Instructions: Headache, Adult (DC) Forms: [facility] (Yoruba) - Clinical Impression Clinical Impression: Headache - Scribe Statement The provider has reviewed the documentation as recorded by the Scribe Emeterio Hutton All medical record entries made by the Scribe were at my direction and personally dictated by me. I have reviewed the chart and agree that the record accurately reflects my personal performance of the history, physical exam, medical decision making, and the department course for this patient. I have also personally directed, reviewed, and agree with the discharge instructions and disposition.
[2018-10-12 21:20] LABS: BASO # 0.1 K/uL (0.0-0.2); BASO % 0.5 % (0.0-2.0); EOS % 0.4 % (0.0-4.0); HEMOGLOBIN 14.7 g/dL (11.0-16.0); MEAN CELL VOLUME 90.1 fL (81.0-99.0); MEAN CORPUSCULAR HEMOGLOBIN 31.9 pg (27.0-31.0); MEAN CORPUSCULAR HGB CONC 35.4 g/dL (33.0-37.0); MEAN PLATELET VOLUME 8.6 fL (7.2-11.7); MONO # 0.5 K/uL (0.0-0.8); MONO % 5.2 % (0.0-10.0); NEUT % 72.9 % (50.0-75.0); NRBC % 0.1 % (0.0-2.0); RBC 4.62 Mil/uL (3.80-5.20); RED CELL DISTRIBUTION WIDTH 12.9 % (11.5-14.5); WHITE BLOOD COUNT 9.6 K/uL (4.8-10.8)
[2018-10-12 21:30] LABS: ALB/GLOB RATIO 1.4 (1.0-2.1); ALBUMIN 4.5 g/dL (3.5-5.0); ALT/SGPT 11 U/L (9-52); AST/SGOT 16 U/L (14-36); BLOOD UREA NITROGEN 8 mg/dL (7-17); CALCIUM 8.9 mg/dl (8.6-10.4); GFR NON-AFRICAN AMERICAN > 60
[2018-10-12 23:19] VITALS: BP 120/80; PULSE 82; RESP 20; TEMP 98.2
--- NOTE | 2018-10-13 16:50 | CT ---
Date of service: 10/12/2018 PROCEDURE: CT HEAD WITHOUT CONTRAST. HISTORY: Headache COMPARISON: None available. TECHNIQUE: Axial computed tomography images were obtained through the head/brain without intravenous contrast. Radiation dose: Total exam DLP = 1342.7 mGy-cm. This CT exam was performed using one or more of the following dose reduction techniques: Automated exposure control, adjustment of the mA and/or kV according to patient size, and/or use of iterative reconstruction technique. FINDINGS: HEMORRHAGE: No intracranial hemorrhage. BRAIN: Normal [place]-white matter differentiation and density are appreciated throughout the cerebrum and cerebellum with the brainstem appearing unremarkable as well. There is no mass effect. There is no suspicious extra-axial fluid collection and the midline brain anatomy appears diffusely unremarkable. VENTRICLES: Unremarkable. No hydrocephalus. CALVARIUM: Unremarkable. PARANASAL SINUSES: Unremarkable as visualized. No significant inflammatory changes. MASTOID AIR CELLS: Unremarkable as visualized. No inflammatory changes. OTHER FINDINGS: None. IMPRESSION: Unremarkable unenhanced head CT. Concordant preliminary report from Jonathon, 10/12/2018 10:48 p.m..
== END 2018-10-12 23:18 | disposition home or self-care (01) ==
LOC: C.ER 20:17
DX: R51 Headache (principal); I10 Essential (primary) hypertension
CPT/HCPCS: 70450; 80053; 85025; 96374; 96375; 99282; J1885; J2405

== ENCOUNTER 2018-11-20 16:29 | Emergency (ER) | payer MEDICAID ==
[2018-11-20 16:29] VITALS: BMI 23.3
[2018-11-20 16:50] VITALS: BP 116/70; PULSE 84; RESP 18; O2SAT 97
[2018-11-20] MEDS ORDERED: Sodium Chloride 0.9% 1,000 ML IV ONE (19:27)
--- NOTE | 2018-11-20 19:27 | C.PDOC ---
History Of Present Illness 28 year old female presents to the ED c/o frequent headaches. Patient reports that today she was walking with her Mother and a Friend when she had a syncopal episodes. Patient does not know how long she was down. Patient denies fever, chills, visual changes, nausea, vomit, diarrhea, dizziness, weakness, numbness. Time Seen by Provider: 11/20/18 19:26 Chief Complaint (Nursing): Syncope History Per: Patient History/Exam Limitations: no limitations Onset/Duration Of Symptoms: Hrs Current Symptoms Are (Timing): Still Present Number Of Syncopal Episodes: 1 Activity At Onset Of Symptoms: Walking Associated Symptoms Preceding Syncopal Episode: No Predromal Symptoms (Sudden Onset) Seizure Or Post-ictal Symptoms: None Fall Associated With With Symptoms: No Severity: None Recent travel outside of the [place]: No Additional History Per: Patient Past Medical History Reviewed: Historical Data, Nursing Documentation, Vital Signs Vital Signs: Last Vital Signs Temp 98.4 F 11/20/18 16:44 Pulse 84 11/20/18 16:44 Resp 18 11/20/18 16:44 BP 116/70 11/20/18 16:44 Pulse Ox 97 11/20/18 16:44 - Medical History PMH: HTN Surgical History: No Surg Hx - [facility] Procedures ASPIRAT CURET-POST DELIV (03/30/15) OTHER INSTILLATION (12/06/13) Family History: States: Unknown Family Hx - Social History Hx Tobacco Use: No Hx Alcohol Use: No Hx Substance Use: No - Immunization History Hx Tetanus Toxoid Vaccination: No Hx Influenza Vaccination: No Hx Pneumococcal Vaccination: No Review Of Systems Constitutional: Negative for: Fever, Chills Eyes: Negative for: Vision Change Respiratory: Negative for: Cough, Shortness of Breath Gastrointestinal: Negative for: Nausea, Vomiting, Abdominal Pain Skin: Negative for: Rash Neurological: Negative for: Weakness, Numbness, Headache, Dizziness Physical Exam - Physical Exam Appears: Non-toxic, No Acute Distress Skin: Warm, Dry Head: Normacephalic Eye(s): bilateral: Normal Inspection, PERRL, EOMI Oral Mucosa: Moist Neck: Supple Chest: Symmetrical Cardiovascular: Rhythm Regular Respiratory: No Rales, No Rhonchi, No Wheezing Gastrointestinal/Abdominal: Soft, No Tenderness, No Guarding, No Rebound Extremity: Bilateral: Atraumatic, Normal Color And Temperature, Normal ROM Neurological/Psych: Oriented x3, Normal Speech, Normal Cognition Gait: Steady ED Course And Treatment - Laboratory Results Result Diagrams: 11/20/18 19:58 11/20/18 19:58 ECG: Interpreted By Me, Viewed By Me ECG Rhythm: Sinus Rhythm (75), Nonspecific Changes O2 Sat by Pulse Oximetry: 97 (ON RA) Pulse Ox Interpretation: Normal Progress Note: Plan: - CT head. - EKG. - Labs. - IV fluids. - UA. went to re-examine the pt, but pt had eloped. no ct done Disposition Counseled Patient/Family Regarding: Studies Performed, Diagnosis - Disposition Disposition: ELOPEMENT - ER ONLY Disposition Time: 19:27 Condition: FAIR Forms: [facility] (Setswana) - Clinical Impression Clinical Impression: Near syncope - Scribe Statement The provider has reviewed the documentation as recorded by the Scribe Emeterio Hutton All medical record entries made by the Scribe were at my direction and persona lly dictated by me. I have reviewed the chart and agree that the record accurately reflects my personal performance of the history, physical exam, medical decision making, and the department course for this patient. I have also personally directed, reviewed, and agree with the discharge instructions and disposition.
[2018-11-20 20:02] LABS: BASO % 0.5 % (0.0-2.0); EOS % 0.4 % (0.0-4.0); LYMPH # 2.8 K/uL (1.0-4.3); LYMPH % 36.9 % (20.0-40.0); MEAN CORPUSCULAR HEMOGLOBIN 31.9 pg (27.0-31.0); MEAN CORPUSCULAR HGB CONC 35.5 g/dL (33.0-37.0); MONO # 0.4 K/uL (0.0-0.8); MONO % 5.3 % (0.0-10.0); NEUT # 4.3 K/uL (1.8-7.0); NEUT % 56.9 % (50.0-75.0); NRBC % 0.1 % (0.0-2.0); RBC 4.7 Mil/uL (3.80-5.20); RED CELL DISTRIBUTION WIDTH 12.9 % (11.5-14.5); WHITE BLOOD COUNT 7.6 K/uL (4.8-10.8)
[2018-11-20 20:07] LABS: HCG,QUALITATIVE URINE NEGATIVE (NEGATIVE)
[2018-11-20 20:09] LABS: SQUAMOUS EPITHIAL 5 /hpf (0-5); URINE BACTERIA OCC (<OCC); URINE BILIRUBIN NEGATIVE (NEGATIVE); URINE BLOOD 1+ (NEGATIVE); URINE CLARITY Hazy (Clear); URINE COLOR Yellow (YELLOW); URINE GLUCOSE (UA) NORMAL (Normal); URINE LEUKOCYTE ESTERASE NEG Leu/uL (Negative); URINE PROTEIN NEGATIVE (NEGATIVE); URINE UROBILINOGEN NORMAL mg/dL (0.2-1.0)
[2018-11-20 20:14] LABS: ALB/GLOB RATIO 1.4 (1.0-2.1); ALBUMIN 4.7 g/dL (3.5-5.0); ALT/SGPT 10 U/L (9-52); AST/SGOT 21 U/L (14-36); BLOOD UREA NITROGEN 6 mg/dL (7-17); CALCIUM 9.6 mg/dl (8.6-10.4); GFR NON-AFRICAN AMERICAN > 60
[2018-11-20 20:19] LABS: BARBITURATES, UR NEGATIVE (NEGATIVE); BENZODIAZEPINES, UR NEGATIVE (NEGATIVE); OPIATES, UR NEGATIVE (NEGATIVE); PHENCYCLIDINE, UR NEGATIVE (NEGATIVE)
[2018-11-20 20:22] VITALS: TEMP 98
== END 2018-11-20 20:21 | disposition left against medical advice (07) ==
LOC: C.ER 16:29
DX: R55 Syncope and collapse (principal)
CPT/HCPCS: 80053; 80324; 80345; 80346; 80349; 80353; 80358; 80361; 81001; 82948; 83992; 84484; 84703; 85025; 99285; J7030

== ENCOUNTER 2018-12-04 16:14 | Emergency (ER) | payer MEDICAID ==
[2018-12-04 16:42] VITALS: BMI 23.0
[2018-12-04 16:47] VITALS: BP 109/77; PULSE 93; RESP 17; TEMP 98.8; O2SAT 100
[2018-12-04] MEDS ORDERED: Lidocaine 5% Patch TD STA (17:20)
--- NOTE | 2018-12-04 17:27 | C.PDOC ---
History Of Present Illness 28 year old female presents to ED with complaint of right rib pain since yesterday. Patient states that she is moving to another home and was lifting a heavy bin of clothes and started to feel pain. Patient states that she is not fond of taking pain medication. She states that she has been applying icy hot cream with no relief. Patient denies SOB, nausea, vomiting, abdominal pain, dizziness, and weakness. Time Seen by Provider: 12/04/18 16:40 Chief Complaint (Nursing): Rib Injury History Per: Patient History/Exam Limitations: no limitations Onset/Duration Of Symptoms: Days (1) Current Symptoms Are (Timing): Still Present Quality: "Pain" Past Medical History Reviewed: Historical Data, Nursing Documentation, Vital Signs Vital Signs: Last Vital Signs Temp 98.8 F 12/04/18 16:43 Pulse 93 H 12/04/18 16:43 Resp 17 12/04/18 16:43 BP 109/77 12/04/18 16:43 Pulse Ox 100 12/04/18 16:43 - Medical History PMH: HTN Surgical History: No Surg Hx - [facility] Procedures ASPIRAT CURET-POST DELIV (03/30/15) OTHER INSTILLATION (12/06/13) Family History: States: Unknown Family Hx - Social History Hx Tobacco Use: No Hx Alcohol Use: No Hx Substance Use: No - Immunization History Hx Tetanus Toxoid Vaccination: No Hx Influenza Vaccination: No Hx Pneumococcal Vaccination: No Review Of Systems Constitutional: Negative for: Fever, Chills, Weakness Cardiovascular: Positive for: Other (right rib pain ) Respiratory: Negative for: Shortness of Breath Gastrointestinal: Negative for: Nausea, Vomiting, Abdominal Pain Neurological: Negative for: Weakness, Numbness, Dizziness Physical Exam - Physical Exam Appears: Non-toxic, No Acute Distress Skin: Normal Color, Warm, Dry Head: Atraumatic, Normacephalic Neck: Normal ROM, Supple Chest: Tenderness (pain to the right rib below the right breast, tender to touch, no erythema, no ecchymosis) Cardiovascular: Rhythm Regular, No Murmur Respiratory: No Accessory Muscle Use, No Rales, No Rhonchi, No Wheezing Gastrointestinal/Abdominal: Soft, No Tenderness Extremity: Capillary Refill (<2 seconds) Neurological/Psych: Oriented x3, Normal Speech, Normal Cognition ED Course And Treatment O2 Sat by Pulse Oximetry: 100 (in RA) Medical Decision Making Medical Decision Making: Impression: 28 year old female presents to ED with complaint of right rib pain since yesterday Plan: POC U-preg -neg Lidoderm TD applied Rib and Chest X-ray ordered but patient eloped prior to imaging Disposition - Disposition Disposition: ELOPEMENT - ER ONLY Disposition Time: 18:27 Condition: UNKNOWN Forms: [facility] (Sierra Leonean) - Clinical Impression Clinical Impression: Rib pain on right side - PA / CIRCULATION LIBRARIAN / Resident Statement MD/DO has reviewed & agrees with the documentation as recorded. (Eileen Edwards) - Scribe Statement The provider has reviewed the documentation as recorded by the Scribe (Eileen Edwards) All medical record entries made by the Scribe were at my direction and personally dictated by me. I have reviewed the chart and agree that the record accurately reflects my personal performance of the history, physical exam, medical decision making, and the department course for this patient. I have also personally directed, reviewed, and agree with the discharge instructions and disposition.
[2018-12-04] MEDS ORDERED: Lidocaine 5% Patch TD ONE (17:35)
== END 2018-12-04 18:28 | disposition left against medical advice (07) ==
LOC: C.ER 16:14
DX: R07.81 Pleurodynia (principal)